=== PATIENT | male | born 1960 | race Caucasian/White ===

== ENCOUNTER 2024-03-17 01:23 | Observation (INO) | payer OTHER, SELFPAY ==
[2024-03-17] VITALS (28 sets, daily range): BP systolic 104–168; BP diastolic 58–103; PULSE 58–93; RESP 12–20; TEMP 36.1–36.6; O2SAT 94–100; BMI 29.2; BMI 29.0
--- NOTE | 2024-03-17 | EST_ITS ---
Patient Info Name: Misha Roman Age: 63 years : 1960 Gender: Male Ht: 72 in Wt: 215 lbs BSA: 2.25 m2 HR: 81 bpm BP: 123 / 88 mmHg Exam Date: 03/18/2024 10:23 AM Exam Location: Echo Lab Patient Status: Inpatient Admit Date: 03/17/2024 Staff Ordering Physician: Aneta Cantrell Attending Provider: Elizabeth Latham DO Exercise Technologist: Marisela Schmidt RDCS Exercise Physician: Bhupinder Chacon MD Exam Type: CA stress lawrence w NM Study Info A regadenoson stress test was performed. Summary 1. No abnormal ST/T wave changes diagnostic of ischemia with Lexiscan. 2. Please correlate with nuclear medicine images, reported separately. 3. Stress test supervised by and interpreted by Bhupinder Chacon MD. Protocol: Lexiscan Stress ECG Details Stage: REST Duration (min): 0 min : 52 sec HR (bpm): 85 SBP (mmHg): 123 DBP (mmHg): 88 Stage: REST Duration (min): 23 min : 49 sec HR (bpm): 83 SBP (mmHg): 123 DBP (mmHg): 88 Stage: STAGE 1 Duration (min): 1 min : 0 sec HR (bpm): 110 SBP (mmHg): 120 DBP (mmHg): 82 Stage: RECOVERY Duration (min): 1 min : 0 sec HR (bpm): 106 SBP (mmHg): 120 DBP (mmHg): 82 Stage: RECOVERY Duration (min): 2 min : 0 sec HR (bpm): 101 SBP (mmHg): 120 DBP (mmHg): 82 Stage: RECOVERY Duration (min): 3 min : 0 sec HR (bpm): 100 SBP (mmHg): 111 DBP (mmHg): 79 Stage: RECOVERY Duration (min): 3 min : 7 sec HR (bpm): 100 SBP (mmHg): 111 DBP (mmHg): 79 Rest HR: 83 bpm Peak HR: 114 bpm Rest Sys BP: 123 mmHg Peak Sys BP: 120 mmHg Max Pred HR: 157 bpm % Max Pred HR: 73 % Target HR: 133 bpm Max RPP: 13,680 bpm*mmHg Total Time: 1 min : 0 sec Rest Goldstein BP: 88 mmHg Peak Goldstein BP: 82 mmHg Total Dose: 0.4 mg Resting ECG Sinus rhythm. Stress ECG No abnormal ST/T wave changes diagnostic of ischemia with Lexiscan. Arrhythmias None. Report Signatures
--- NOTE | ~2024-03-17 | NM_ITS ---
EXAMINATION: NM lawrence stress w perfusion DATE: 03/18/2024 11:54 INDICATION: Chest pain. TECHNIQUE: Rest images were obtained following intravenous administration of 10.3 mCi Tc99m tetrofosm in (Myoview). The patient was infused intravenously with Lexiscan (regadenoson). Then, 32.4 mCi Tc99m tetrofosmin (Myoview) was administered intravenously, and supine and prone stress images were obtain ed. Data was reconstructed into short axis and horizontal and vertical long axis SPECT images. Gated SPECT images were also obtained. COMPARISON: None. FINDINGS: There is a moderate-sized, moderate severity, fixed perfusion defect involving mid anterola teral segment and mid to basal inferolateral segments of left ventricle, consistent with infarct. No reversible component to suggest ischemia. There is no segmental wall motion abnormality. Left ventr icular ejection fraction measures 56%. IMPRESSION: 1. Moderate-sized area of moderate severity infarct involving mid anterolateral segment and mid to ba alexi inferolateral segments of left ventricle. 2. Normal left ventricular ejection fraction measuring 56%. Reviewed, dictated and finalized at location A. TER SUPERVISOR IMPRESSION: 1. Moderate-sized area of moderate severity infarct involving mid anterolateral segment and mid to basal inferolateral segments of left ventricle. 2. Normal left ventricular ejection fraction measuring 56%.
--- NOTE | ~2024-03-17 | XR_ITS ---
Clinical Indication: Chest pain PA and lateral views of the chest: Comparison: None Findings: The lungs are clear, without evidence of focal consolidation or pleural effusion. Cardiome diastinal silhouette is within normal limits. Bones and soft tissues are unremarkable. Impression: Normal chest. Reviewed, dictated and finalized at location . NG TECHNICIAN Impression: Normal chest.
--- NOTE | 2024-03-17 01:25 | ECG_ITS ---
Test Date: 2024-03-17 01:43:52 Measurements Intervals [place] Rate: 75 P: 55 MS: 184 QRS: -22 QRSD: 105 T: 9 QT: 386 QTc: 433 Interpretive Statements SINUS RHYTHM BORDERLINE LEFT AXIS DEVIATION [QRS AXIS < -20] MINIMAL VOLTAGE CRITERIA FOR LVH, CONSIDER NORMAL VARIANT [MEETS CRITERIA IN ONE OF: R(aVL), S(V1), R(V5), R(V5/V6)+S(V1)] No previous ECG available for comparison Electronically Signed On 03-18-2024 17:21:21 WOOD ENGRAVER by Bhupinder Chacon M.D.
[2024-03-17] MEDS: ASPIRIN 81 MG CHEWABLE TABLET 324 MG PO (02:02)
[2024-03-17 02:03] LABS: Basophils Absolute Auto 0.1 K/mm3 (0.0-0.1); Basophils Percent Auto 0.8 % (0.2-1.2); Eosinophils Absolute Auto 0.2 K/mm3 (0-0.3); Eosinophils Percent Auto 2.3 % (0-4.4); Hematocrit 42.6 % (42.0-52.0); Hemoglobin 14.9 g/dL (14.0-18.0); Immature Granulocyte Absolute 0.02 K/mm3 (0.00-0.031); Immature Granulocyte Percent A 0.2 % (0-0.5); Lymphocytes Absolute Auto 2.57 K/mm3 (0.9-3.2); Lymphocytes Percent Auto 30.6 % (18.3-44.2); Mean Corpuscular Hemoglobin 28.6 pg (26-34); Mean Corpuscular Volume 81.8 fl (80-100); Mean Platelet Volume 10.8 fl (7.4-10.4); Monocytes Absolute Auto 0.9 K/mm3 (0.1-0.6); Monocytes Percent Auto 10.6 % (2.6-8.5); Neutrophils Absolute Auto 4.7 K/mm3 (1.3-6.7); Neutrophils Percent Auto 55.5 % (45.5-73.1); Platelet Count Result 227 k/mm3 (150-375); Red Blood Count 5.21 M/mm3 (4.6-6.20); Red Cell Distribution Width 12.3 % (11.5-14.5); White Blood Count 8.4 K/mm3 (4.5-10.0)
[2024-03-17 02:15] LABS: Alanine Aminotransferase 18 U/L (6-50); Albumin Level 3.9 g/dL (3.5-5.1); Alkaline Phosphatase 84 U/L (38-126); Anion Gap 7 mmol/L (4-12); Aspartate Amino Transferase 23 U/L (17-59); Bilirubin,Total 0.7 mg/dL (0.2-1.3); Blood Urea Nitrogen 17 mg/dL (9-20); Calcium 9.6 mg/dL (8.4-10.2); Carbon Dioxide 27 mmol/L (22-30); Chloride 102 mmol/L (98-107); Estimated CRCL calculation 87 ml/min; Estimated Glomerular Filt Rate > 60; Glucose 99 mg/dL (65-110); INR 0.9; Lipase 86 U/L (23-300); Partial Thromboplastin Time 29.5 Seconds (22.3-36.8); Potassium 3.8 mmol/L (3.4-5.0); Prothrombin Time 12.7 Seconds (11.1-14.7); Sodium 136 mmol/L (137-145)
[2024-03-17] MEDS: NITROGLYCERIN SL 0.4 MG TABLET SUBLINGUAL ×2 (02:19→05:13)
[2024-03-17 02:26] LABS: Troponin I < 0.012 ng/mL (0.000-0.034)
--- NOTE | 2024-03-17 02:43 | ED_ITS ---
HPI - General Adult General Chief complaint: Chest Pain Stated complaint: chest pain Time Seen by Provider: 03/17/24 01:51 History of Present Illness HPI narrative: The patient is 63-year-old gentleman who presents emergency department with chief complaint of chest discomfort. The patient reports that he woke up this evening was having discomfort in the left side of his chest the patient states it was a heaviness but also a sharp type pain the patient states he has had an upper respiratory infection for several weeks and had a productive cough patient states that the pain is worse with inspiration worse with cough. Patient reports that he currently does not have a primary care provider Related Data Allergies Allergy/AdvReac Type Severity Reaction Status Date / Time No Known Allergies Allergy Verified 03/17/24 01:24 Review of Systems 2 Review of Systems: A 10 system review of systems was completed on the patient and is negative except for what is stated in the HPI. Nursing and ancillary documentation was reviewed. Exam 2 Narrative: GENERAL: Well-appearing, well-nourished, and in no acute distress. HEAD: Normocephalic, atraumatic. EYES: PERRLA and EOMI. ENT: Nares clear, no rhinorrhea or epistaxis. Mucous membranes moist. NECK: Supple. CHEST: Clear to auscultation. No respiratory distress. HEART: Regular rate and rhythm. No murmur heard. Normal peripheral pulses. ABDOMEN: Soft, nontender, nondistended, normal active bowel sounds. EXTREMITIES: Normal range of motion. No edema. SKIN: Warm, dry, no rash. NEURO: No focal deficits. Alert and oriented x3. PSYCH: Normal mood and affect. Course Vital Signs Vital signs: Vital Signs Pulse Rate 82 03/17/24 01:33 Respiratory Rate 15 03/17/24 01:33 Blood Pressure 160/88 H 03/17/24 01:33 Pulse Oximetry 99 03/17/24 01:33 Oxygen Delivery Room Air 03/17/24 01:33 Temperature 36.1 C L 03/17/24 05:25 Pulse Rate 61 03/17/24 04:15 Respiratory Rate 19 03/17/24 04:15 Blood Pressure 122/78 03/17/24 04:15 Pulse Oximetry 98 03/17/24 04:15 Oxygen Delivery Room Air 03/17/24 03:00 Medical Decision Making [facility] Narrative Medical decision making narrative: Differential diagnosis includes ACS, unstable angina, stable angina, noncardiac chest pain, esophageal reflux The patient was given sublingual nitro and had resolution in his pain pain did come back and was also relieved with sublingual nitro. Vital Signs Vital Signs: Vital Signs Pulse Rate 82 03/17/24 01:33 Respiratory Rate 15 03/17/24 01:33 Blood Pressure 160/88 H 03/17/24 01:33 Pulse Oximetry 99 03/17/24 01:33 Oxygen Delivery Room Air 03/17/24 01:33 Temperature 36.1 C L 03/17/24 05:25 Pulse Rate 61 03/17/24 04:15 Respiratory Rate 19 03/17/24 04:15 Blood Pressure 122/78 03/17/24 04:15 Pulse Oximetry 98 03/17/24 04:15 Oxygen Delivery Room Air 03/17/24 03:00 Lab Data 03/17/24 01:56 03/17/24 01:56 Labs: Lab Results 03/17/24 03/17/24 03/17/24 Range/Units 01:56 02:49 04:50 WBC 8.4 (4.5-10.0) K/mm3 RBC 5.21 (4.6-6.20) M/mm3 Hgb 14.9 (14.0-18.0) g/dL Hct 42.6 (42.0-52.0) % MCV 81.8 (80-100) fl MCH 28.6 (26-34) pg MCHC 35.0 (32-36) g/dl RDW 12.3 (11.5-14.5) % Plt Count 227 (150-375) k/mm3 MPV 10.8 H (7.4-10.4) fl Immature Gran % (Auto) 0.2 (0-0.5) % Neut % (Auto) 55.5 (45.5-73.1) % Lymph % (Auto) 30.6 (18.3-44.2) % [place] % (Auto) 10.6 H (2.6-8.5) % Eos % (Auto) 2.3 (0-4.4) % Baso % (Auto) 0.8 (0.2-1.2) % Lymph # (Auto) 2.57 (0.9-3.2) K/mm3 [place] # (Auto) 0.9 H (0.1-0.6) K/mm3 Eos # (Auto) 0.2 (0-0.3) K/mm3 Baso # (Auto) 0.1 (0.0-0.1) K/mm3 Abs Immat Gran (auto) 0.02 (0.00-0.031) K/mm3 Absolute Neuts (auto) 4.7 (1.3-6.7) K/mm3 Absolute Nucleated RBC 0.000 (0.0-0.012) K/mm3 Nucleated RBC % 0.0 (0.0-0.2) % PT 12.7 (11.1-14.7) Seconds INR 0.9 APTT 29.5 (22.3-36.8) Seconds Sodium 136 L (137-145) mmol/L Potassium 3.8 (3.4-5.0) mmol/L Chloride 102 (98-107) mmol/L Carbon Dioxide 27 (22-30) mmol/L Anion Gap 7 (4-12) mmol/L BUN 17 (9-20) mg/dL Creatinine 0.83 (0.7-1.3) mg/dL Estim Creat Clear Calc 87 ml/min Estimated GFR > 60 (59 - ) Glucose 99 (65-110) mg/dL Calcium 9.6 (8.4-10.2) mg/dL Total Bilirubin 0.7 (0.2-1.3) mg/dL AST 23 (17-59) U/L ALT 18 (6-50) U/L Alkaline Phosphatase 84 (38-126) U/L Troponin I < 0.012 < 0.012 (0.000-0.034) ng/mL Total Protein 7.0 (6.3-8.2) g/dL Albumin 3.9 (3.5-5.1) g/dL Lipase 86 (23-300) U/L Influenza A (RT-PCR) Negative (Negative) Influenza B (RT-PCR) Negative (Negative) RSV (RT-PCR) Negative (Negative) SARS-CoV-2 RNA (RT-PCR) Negative (Negative) Discharge Plan Discharge Clinical Impression: Chest pain Patient Disposition: Still a Patient Condition: Stable Patient Language: Icelandic Follow-up/Referrals: PHYSICIAN,[employer] [facility] [Primary Care Provider] - Time of Disposition: 05:55
[2024-03-17 03:33] LABS: Influenza A QL RT-PCR Negative (Negative); Influenza B QL RT-PCR Negative (Negative); RSV RNA, RT-PCR Negative (Negative); SARS-CoV-2 RNA PCR Negative (Negative)
--- NOTE | 2024-03-17 04:44 | ECG_ITS ---
Test Date: 2024-03-17 04:48:22 Measurements Intervals [place] Rate: 61 P: 45 TN: 174 QRS: -12 QRSD: 91 T: 26 QT: 392 QTc: 396 Interpretive Statements SINUS RHYTHM MINIMAL VOLTAGE CRITERIA FOR LVH, CONSIDER NORMAL VARIANT NONSPECIFIC T-WAVE ABNORMALITY Compared to ECG 03/17/2024 01:43:52 NO SIGNIFICANT CHANGES Electronically Signed On 03-18-2024 17:28:40 FAMILY PROGRAM SPECIALIST by Bhupinder Chacon M.D.
[2024-03-17] MEDS: NITROGLYCERIN OINTMENT 1 INCH DOSE TRANSDERM ×3 (05:33→17:36)
[2024-03-17 05:50] LABS: Troponin I < 0.012 ng/mL (0.000-0.034)
[2024-03-17] MEDS: MORPHINE SULFATE (*CRX) 4 MG/ML INJ IV PUSH (06:31)
[2024-03-17] MEDS: ONDANSETRON INJ 4 MG/2 ML VIAL IV PUSH (06:31)
--- NOTE | 2024-03-17 07:35 | ECG_ITS ---
Test Date: 2024-03-17 07:44:54 Measurements Intervals [place] Rate: 64 P: 155 [place]: 174 QRS: -28 QRSD: 91 T: 0 QT: 382 QTc: 397 Interpretive Statements SINUS RHYTHM WITH SINUS ARRHYTHMIA BORDERLINE LEFT AXIS DEVIATION [QRS AXIS < -20] NONSPECIFIC T-WAVE ABNORMALITY Compared to ECG 03/17/2024 04:48:22 No significant changes Electronically Signed On 03-18-2024 17:30:11 TENSION MACHINE OPERATOR by Bhupinder Chacon M.D.
[2024-03-17 08:04] LABS: Troponin I < 0.012 ng/mL (0.000-0.034)
[2024-03-17] MEDS: ASPIRIN 81 MG CHEWABLE TABLET PO (08:13)
[2024-03-17 12:11] LABS: Basophils Percent Auto 0.5 % (0.2-1.2); Eosinophils Absolute Auto 0.1 K/mm3 (0-0.3); Eosinophils Percent Auto 0.8 % (0-4.4); Hematocrit 45.5 % (42.0-52.0); Hemoglobin 15.6 g/dL (14.0-18.0); Immature Granulocyte Absolute 0.03 K/mm3 (0.00-0.031); Immature Granulocyte Percent A 0.3 % (0-0.5); Lymphocytes Absolute Auto 2.16 K/mm3 (0.9-3.2); Lymphocytes Percent Auto 25.1 % (18.3-44.2); Mean Corpuscular HGB Conc 34.3 g/dl (32-36); Mean Corpuscular Hemoglobin 28.6 pg (26-34); Mean Corpuscular Volume 83.5 fl (80-100); Mean Platelet Volume 10.5 fl (7.4-10.4); Monocytes Absolute Auto 0.9 K/mm3 (0.1-0.6); Neutrophils Absolute Auto 5.5 K/mm3 (1.3-6.7); Neutrophils Percent Auto 63.3 % (45.5-73.1); Platelet Count Result 243 k/mm3 (150-375); Red Blood Count 5.45 M/mm3 (4.6-6.20); Red Cell Distribution Width 12.7 % (11.5-14.5); White Blood Count 8.6 K/mm3 (4.5-10.0)
[2024-03-17 12:27] LABS: Prothrombin Time 13.5 Seconds (11.1-14.7)
[2024-03-17 12:29] LABS: Partial Thromboplastin Time 28.9 Seconds (22.3-36.8)
--- NOTE | 2024-03-17 12:58 | PM.IMHP ---
H&P: HPI History of Present Illness Date/Time: 03/17/24 12:58 Chief Complaint: Chest pain Narrative: 63 years old gentleman without significant past medical history present ED with a chief complaint of chest pain. Patient started have chest pain yesterday evening, locating left chest, pressure-like and sharp pain without radiation. Patient denies cough, shortness breath, nausea vomiting diarrhea acid reflux Patient has upper respiratory infection in past weeks Upon arrival in ED, patient has uncontrolled blood pressure 160/88, pulse ox 99 on room air, afebrile, CBC and chemistry unremarkable, influenza and COVID negative, troponin negative x2, less than 0.012 EKG shows sinus rhythm, no specific ST or T-wave changes. Chest x-ray shows no acute cardiopulmonary issues In the ED, patient received aspirin, nitro paste now patient has no chest pain PMFSH Social History Social History Smoking status: Never smoker Meds Home Medications and Allergies Home Medications ?Medication ?Instructions ?Recorded ?Confirmed ?Type No Home Medications 03/17/24 03/17/24 History Allergies Allergy/AdvReac Type Severity Reaction Status Date / Time No Known Allergies Allergy Verified 03/17/24 08:22 Vital Signs Vital Signs - 24 hr 03/17/24 01:33 03/17/24 01:45 03/17/24 02:00 Temperature Pulse Rate 82 80 76 Respiratory Rate 15 12 16 Blood Pressure 160/88 H 168/103 H 156/90 H Pulse Oximetry 99 98 100 Oxygen Delivery Room Air 03/17/24 02:17 03/17/24 02:23 03/17/24 02:30 Temperature Pulse Rate 72 84 86 Respiratory Rate 13 16 13 Blood Pressure 148/80 H 116/78 136/85 Pulse Oximetry 96 96 94 Oxygen Delivery 03/17/24 02:41 03/17/24 02:45 03/17/24 03:00 Temperature Pulse Rate 84 71 Respiratory Rate 13 12 Blood Pressure 123/78 123/74 Pulse Oximetry 94 97 Oxygen Delivery Room Air 03/17/24 03:00 03/17/24 03:15 03/17/24 03:30 Temperature Pulse Rate 70 62 63 Respiratory Rate 16 12 18 Blood Pressure 127/73 120/81 130/81 Pulse Oximetry 97 99 96 Oxygen Delivery 03/17/24 03:45 03/17/24 04:00 03/17/24 04:15 Temperature Pulse Rate 60 61 61 Respiratory Rate 12 18 19 Blood Pressure 112/64 104/63 122/78 Pulse Oximetry 99 97 98 Oxygen Delivery 03/17/24 05:25 03/17/24 07:35 03/17/24 08:01 Temperature 97.0 F L Pulse Rate 60 77 Respiratory Rate 18 13 Blood Pressure 113/64 109/66 Pulse Oximetry 96 98 Oxygen Delivery 03/17/24 10:00 03/17/24 10:46 Temperature Pulse Rate 58 L 73 Respiratory Rate 18 19 Blood Pressure 105/67 Pulse Oximetry 97 100 Oxygen Delivery H&P: Results Labs Labs: Short CBC 03/17/24 03/17/24 Range/Units 01:56 12:06 WBC 8.4 8.6 (4.5-10.0) K/mm3 Hgb 14.9 15.6 (14.0-18.0) g/dL Hct 42.6 45.5 (42.0-52.0) % Plt Count 227 243 (150-375) k/mm3 BMP 03/17/24 01:56 Sodium 136 L Potassium 3.8 Chloride 102 Carbon Dioxide 27 BUN 17 Creatinine 0.83 Glucose 99 Calcium 9.6 Cardiac Enzymes 03/17/24 03/17/24 03/17/24 Range/Units 01:56 04:50 07:24 Troponin I < 0.012 < 0.012 < 0.012 (0.000-0.034) ng/mL Liver Function 03/17/24 Range/Units 01:56 Total Bilirubin 0.7 (0.2-1.3) mg/dL AST 23 (17-59) U/L ALT 18 (6-50) U/L Alkaline Phosphatase 84 (38-126) U/L Albumin 3.9 (3.5-5.1) g/dL Assessment and Plan Assessment and plan (1) Chest pain: Code(s): R07.9 - Chest pain, unspecified Status: Acute (2) Uncontrolled hypertension: Code(s): I10 - Essential (primary) hypertension Status: Acute Plan Chest pain Patient has a precordial chest pain started yesterday no history of CAD. Cardiac stress test 8 years ago was unremarkable Troponin negative EKG shows sinus rhythm no specific ST or T-wave changes Heparin is started Will hold heparin drip now, Follow-up serial troponin EKG p.r.n. new order echocardiogram Start aspirin 325 mg once and 81 mg daily p.o. nitroglycerin sublingual p.r.n. Follow-up lipid panel Telemetry monitoring Order D-dimer stat if positive will consider CTA of the chest UNCONTROLLED HYPERTENSION Elevated blood pressure, patient is not consistent with medication Blood pressure 160 over 88 Patient received nitropaste 1 in q.6 hours Start losartan 50 mg daily p.o. Monitor blood pressure Q 8 hour Hospitalist MIPS Advance Care Plan I have confirmed that the patient's Advanced Care Plan is present, code status is documented, or surrogate decision maker is listed in patient medical record.: Yes Medication Reconciliation I have utilized all available resources to obtain, update and review the patients current medications (includes all prescriptions, OTC, herbals, cannabis, and nutritional supplements).: Yes
--- NOTE | 2024-03-17 13:15 | PC.NURSE ---
Pt upset that he hasn't spoke with a DrSunil since last night. This RN has attempted to reach hospitalist a few times to come and speak with pt. Pt wanting to leave AMA
[2024-03-17 13:28] LABS: D Dimer 0.33 ug/mL (<0.48)
[2024-03-17 13:30] LABS: Cholesterol 221 mg/dL (0-200); HDL Direct 60 mg/dL; Triglycerides 109 mg/dL (<150)
--- NOTE | 2024-03-17 13:36 | PC.NURSE ---
Dr. Collins in speaking with pt at this time
--- NOTE | 2024-03-17 13:39 | ADMGEN ---
This patient, Misha Roman, was admitted to [facility] IMU in ER-6. Patient/family oriented to hospital policies and general routines including ID bracelet, bed and alarms, visiting hours, pain management, procedures, bathroom and other care routines, personal items, smoking policy, room service/diet, and visiting hours. Information on how to activate the Rapid Response Team has been discussed. Patient/Family are encouraged to report perceived risks to care and to ask questions if they do not understand what they are told or what they should do.
[2024-03-17 13:41] LABS: LDL Cholesterol Direct 122 mg/dL
--- NOTE | 2024-03-17 16:02 | P.CONCA_ITS ---
Assessment and Plan Assessment and plan (1) Chest pain: Code(s): R07.9 - Chest pain, unspecified Status: Acute Assessment and Plan: Presents with new onset of central, pressure-like chest pain. Serial troponin levels have been negative and EKG shows normal sinus rhythm, no ST or T-wave abnormalities. Chest pain has been responsive to nitroglycerin. He was ruled out for acute coronary syndrome. However, his history of exertional angina is concerning for myocardial ischemia. Therefore, will order a nuclear stress test to take place tomorrow to rule out underlying coronary artery disease. (2) Uncontrolled hypertension: Code(s): I10 - Essential (primary) hypertension Status: Acute Assessment and Plan: Patient states he was told about 8 years ago he has high blood pressure but declined to take any antihypertensives. His blood pressure has been intermittently elevated while in the emergency department but often at goal. Will hold off on any antihypertensives for now and continue to observe his blood pressure overnight. History of Present Illness History of Present Illness Consult date/time: 03/17/24 16:02 Requesting physician: Hamilton Thomson MD Consult reason: chest pain Reason For Visit: Chest Pain Narrative: Misha Roman is a 63-year-old male with no past medical history. He states that he does not see a doctor. This is a patient who comes to the hospital with a chief complaint of chest pain. Patient developed chest pain the workup from a sleep last night. He describes the pain as a central, pressure-like sensation and feels as if someone is sitting on his chest. Pain has been consistent since onset and increases and decreases in severity. The pain does not radiate to any other areas of the body. He denies any shortness of breath, palpitations, swelling, syncope, presyncope. He does endorse a history of exertional angina. He states an example of shoveling the snow yesterday and having some mild chest discomfort. At the time of my evaluation, he is comfortable and rates his chest discomfort at a 2/10. Of note, his serial troponin levels have been negative and EKG does not have any acute ischemic changes. Review of Systems 2 Review of Systems: All systems reviewed & are unremarkable except as noted in HPI and below PMFSH Social History Social History Smoking status: Never smoker Alcohol intake: current Drinks per week: 10 Substance use: never Substance use type: does not use Do You Feel Safe in your Home?: Yes Lack of Transportation: No Lack of Food: Never True Current Housing: I Have Housing Concerned About Future Housing: No Difficulty Paying Gas/Electric Bills: No Difficulty Paying for Meds: No Currently Unemployed: No Education: High School Diploma/GED Difficulty w/ Childcare or Family Care: No Spiritual care concerns: No Meds Home Medications and Allergies Home Medications ?Medication ?Instructions ?Recorded ?Confirmed ?Type No Home Medications 03/17/24 03/17/24 History Allergies Allergy/AdvReac Type Severity Reaction Status Date / Time No Known Allergies Allergy Verified 03/17/24 08:22 Vital Signs Vital Signs - 24 hr 03/17/24 01:33 03/17/24 01:45 03/17/24 02:00 Temperature Pulse Rate 82 80 76 Respiratory Rate 15 12 16 Blood Pressure 160/88 H 168/103 H 156/90 H Pulse Oximetry 99 98 100 Oxygen Delivery Room Air 03/17/24 02:17 03/17/24 02:23 03/17/24 02:30 Temperature Pulse Rate 72 84 86 Respiratory Rate 13 16 13 Blood Pressure 148/80 H 116/78 136/85 Pulse Oximetry 96 96 94 Oxygen Delivery 03/17/24 02:41 03/17/24 02:45 03/17/24 03:00 Temperature Pulse Rate 84 71 Respiratory Rate 13 12 Blood Pressure 123/78 123/74 Pulse Oximetry 94 97 Oxygen Delivery Room Air 03/17/24 03:00 03/17/24 03:15 03/17/24 03:30 Temperature Pulse Rate 70 62 63 Respiratory Rate 16 12 18 Blood Pressure 127/73 120/81 130/81 Pulse Oximetry 97 99 96 Oxygen Delivery 03/17/24 03:45 03/17/24 04:00 03/17/24 04:15 Temperature Pulse Rate 60 61 61 Respiratory Rate 12 18 19 Blood Pressure 112/64 104/63 122/78 Pulse Oximetry 99 97 98 Oxygen Delivery 03/17/24 05:25 03/17/24 07:35 03/17/24 08:01 Temperature 36.1 C L Pulse Rate 60 77 Respiratory Rate 18 13 Blood Pressure 113/64 109/66 Pulse Oximetry 96 98 Oxygen Delivery 03/17/24 10:00 03/17/24 10:46 03/17/24 12:01 Temperature Pulse Rate 58 L 73 79 Respiratory Rate 18 19 20 Blood Pressure 105/67 128/82 Pulse Oximetry 97 100 100 Oxygen Delivery 03/17/24 13:56 Temperature Pulse Rate 78 Respiratory Rate 15 Blood Pressure 146/92 H Pulse Oximetry 100 Oxygen Delivery Exam 2 Const: General: comfortable, no acute distress, alert and awake O rientation/consciousness: patient oriented x3 HENMT: Head: normal to inspection Eyes: General: appearance normal, both eyes and all related structures P upils: Equal, round and reactive pupils present Neck: Neck: normal visual inspection, supple and no JVD Carotids: normal carotid upstroke Resp: Effort & Inspection: normal respiratory effort Auscultation: clear to auscultation bilaterally Cardio: Rate: regular rate Rhythm: regular rhythm Heart sounds: S1 normal heart sound present, S2 normal heart sound present and no murmurs GI: Auscultation: normal bowel sounds Skin: General skin exam: normal color Neuro: General: patient oriented x3 Cranial nerves: Yes Equal, round and reactive pupils present Extrem: General: normal to inspection Psych: Appearance: grossly normal Mental Status: mental status grossly normal Results Labs and Meds 03/17/24 12:06 03/17/24 01:56 Lab results: Cardiac Enzymes 03/17/24 03/17/24 03/17/24 Range/Units 01:56 04:50 07:24 AST 23 (17-59) U/L Troponin I < 0.012 < 0.012 < 0.012 (0.000-0.034) ng/mL Coagulation 03/17/24 03/17/24 Range/Units 01:56 12:06 PT 12.7 13.5 (11.1-14.7) Seconds APTT 29.5 28.9 (22.3-36.8) Seconds Lipids 03/17/24 Range/Units 12:06 Triglycerides 109 (<150) mg/dL Cholesterol 221 H (0-200) mg/dL CBC 03/17/24 03/17/24 Range/Units 01:56 12:06 WBC 8.4 8.6 (4.5-10.0) K/mm3 RBC 5.21 5.45 (4.6-6.20) M/mm3 Hgb 14.9 15.6 (14.0-18.0) g/dL Hct 42.6 45.5 (42.0-52.0) % Plt Count 227 243 (150-375) k/mm3 Lymph # (Auto) 2.57 2.16 (0.9-3.2) K/mm3 [place] # (Auto) 0.9 H 0.9 H (0.1-0.6) K/mm3 Eos # (Auto) 0.2 0.1 (0-0.3) K/mm3 Baso # (Auto) 0.1 0.0 (0.0-0.1) K/mm3 Comprehensive Metabolic Panel 03/17/24 Range/Units 01:56 Sodium 136 L (137-145) mmol/L Potassium 3.8 (3.4-5.0) mmol/L Chloride 102 (98-107) mmol/L Carbon Dioxide 27 (22-30) mmol/L BUN 17 (9-20) mg/dL Creatinine 0.83 (0.7-1.3) mg/dL Glucose 99 (65-110) mg/dL Calcium 9.6 (8.4-10.2) mg/dL AST 23 (17-59) U/L ALT 18 (6-50) U/L Alkaline Phosphatase 84 (38-126) U/L Total Protein 7.0 (6.3-8.2) g/dL Albumin 3.9 (3.5-5.1) g/dL Patient Weight 03/17/24 23:59 Weight 97.7 kg
--- NOTE | 2024-03-17 17:25 | ADMGEN ---
This patient, Misha Roman, was admitted to IMU Room 214-01. Patient/family oriented to hospital policies and general routines including ID bracelet, bed and alarms, visiting hours, pain management, procedures, bathroom and other care routines, personal items, smoking policy, room service/diet, and visiting hours. Information on how to activate the Rapid Response Team has been discussed. Patient/Family are encouraged to report perceived risks to care and to ask questions if they do not understand what they are told or what they should do.
[2024-03-18] VITALS (15 sets, daily range): BP systolic 119–144; BP diastolic 67–80; PULSE 68–94; RESP 14–16; TEMP 36.5–36.7; O2SAT 93–99
[2024-03-18] MEDS: NITROGLYCERIN OINTMENT 1 INCH DOSE TRANSDERM ×2 (00:06→06:14)
[2024-03-18 04:49] LABS: Basophils Percent Auto 0.3 % (0.2-1.2); Eosinophils Absolute Auto 0.1 K/mm3 (0-0.3); Eosinophils Percent Auto 1.3 % (0-4.4); Hematocrit 39.9 % (42.0-52.0); Hemoglobin 13.8 g/dL (14.0-18.0); Immature Granulocyte Absolute 0.03 K/mm3 (0.00-0.031); Immature Granulocyte Percent A 0.4 % (0-0.5); Lymphocytes Absolute Auto 1.43 K/mm3 (0.9-3.2); Mean Corpuscular HGB Conc 34.6 g/dl (32-36); Mean Corpuscular Hemoglobin 28.9 pg (26-34); Mean Corpuscular Volume 83.5 fl (80-100); Mean Platelet Volume 10.6 fl (7.4-10.4); Monocytes Absolute Auto 0.8 K/mm3 (0.1-0.6); Monocytes Percent Auto 10.8 % (2.6-8.5); Neutrophils Absolute Auto 5.1 K/mm3 (1.3-6.7); Neutrophils Percent Auto 68.2 % (45.5-73.1); Platelet Count Result 208 k/mm3 (150-375); Red Blood Count 4.78 M/mm3 (4.6-6.20); Red Cell Distribution Width 12.4 % (11.5-14.5); White Blood Count 7.5 K/mm3 (4.5-10.0)
[2024-03-18] MEDS: ASPIRIN 81 MG CHEWABLE TABLET PO (08:13)
[2024-03-18] MEDS: ACETAMINOPHEN 325 MG TABLET 650 MG PO (08:13)
--- NOTE | 2024-03-18 10:16 | P.PNIM_ITS ---
Progress Note: A&P Assessment and Plan (1) Chest pain: Code(s): R07.9 - Chest pain, unspecified Status: Acute (2) Uncontrolled hypertension: Code(s): I10 - Essential (primary) hypertension Status: Acute Plan Chest pain Patient has a precordial chest pain started yesterday no history of CAD. Cardiac stress test 8 years ago was unremarkable Troponin negative EKG shows sinus rhythm no specific ST or T-wave changes Heparin is started Will hold heparin drip now, Follow-up serial troponin : negative EKG p.r.n. echocardiogram Start aspirin 325 mg once and 81 mg daily p.o. nitroglycerin sublingual p.r.n. Follow-up lipid panel Telemetry monitoring Order D-dimer -ve 0.33 penidng stress stest UNCONTROLLED HYPERTENSION Elevated blood pressure, patient is not consistent with medication Blood pressure 160 over 88 Patient received nitropaste 1 in q.6 hours Start losartan 50 mg daily p.o. Monitor blood pressure Q 8 hour Subjective Date/time seen: 03/18/24 10:16 Interval history: Saw exam patient, patient feels control, denies chest pain. Patient underwent cardiac stress test today. Patient is afebrile, blood pressure stable, labs reviewed Exam Narrative: GENERAL: Pleasant, in no acute distress. Well-nourished. - EYES: EOMI. Anicteric. - HENT: Moist mucous membranes. - LUNGS: Clear to auscultation bilateral ly, no wheezing, rhonchi, or rales. - CARDIOVASCULAR: Regular rate and rhyth m. No murmur. No JVD. - ABDOMEN: Soft, non-tender and non-dist ended. No palpable masses. - EXTREMITIES: No edema. Peripheral puls es 2+. Non-tender. - NEUROLOGIC: No focal neurological defi cits. CN II-XII grossly intact. - PSYCHIATRIC: Awake, Alert and oriented x 3. Appropriate mood and affect. - SKIN: No rashes or lesions. Warm. - LYMPH: No cervical lymphadenopathy. Objective Data Vital Signs Vital Signs: Vital Signs - 24 hr 03/17/24 10:46 03/17/24 12:01 03/17/24 13:56 Temperature Pulse Rate 73 79 78 Respiratory Rate 19 20 15 Blood Pressure 128/82 146/92 H Pulse Oximetry 100 100 100 03/17/24 13:56 03/17/24 16:50 03/17/24 17:31 Temperature 97.7 F Pulse Rate 78 73 79 Respiratory Rate 14 18 20 Blood Pressure 146/92 H 124/74 122/69 Pulse Oximetry 100 98 100 03/17/24 18:00 03/17/24 19:51 03/17/24 20:00 Temperature 97.5 F L Pulse Rate 93 63 70 Respiratory Rate 18 Blood Pressure 130/75 Pulse Oximetry 100 03/17/24 22:00 03/17/24 23:46 03/18/24 00:00 Temperature 97.8 F Pulse Rate 82 92 79 Respiratory Rate 16 Blood Pressure 122/58 L Pulse Oximetry 98 03/18/24 02:00 03/18/24 04:00 03/18/24 04:00 Temperature 97.7 F Pulse Rate 77 68 84 Respiratory Rate 16 Blood Pressure 119/67 Pulse Oximetry 96 03/18/24 06:00 03/18/24 07:29 Temperature 98.1 F Pulse Rate 77 82 Respiratory Rate 14 Blood Pressure 120/76 Pulse Oximetry 99 Intake/Output Intake/Output: Intake & Output 03/15/24 03/16/24 03/17/24 03/18/24 23:59 23:59 23:59 23:59 Intake Total 700 Output Total 800 Balance -100 Meds/Results Medications: Active Medications Generic Name Dose Route Start Last Admin Trade Name Kjq PRN Reason Stop Dose Admin Acetaminophen 650 mg 03/17/24 05:53 03/18/24 08:13 Acetaminophen 325 Mg Tablet PO 650 mg Q4H PRN Administration Mild Pain (1-3) or Fever Aspirin 81 mg 03/17/24 08:00 03/18/24 08:13 Aspirin 81 Mg Chewable Tablet PO 81 mg DAILY@0800 [facility] Administration Heparin Sodium (Porcine) 4,000 units 03/17/24 11:36 Heparin Sodium 5,000 Units/Ml Vial IV PUSH PRN PRN aPTT less than 55 seconds Heparin Sodium (Porcine) 3,500 units 03/17/24 11:36 Heparin Sodium 5,000 Units/Ml Vial IV PUSH PRN PRN aPTT 55 - 70 seconds Heparin Sodium/Dextrose 25,000 units in 250 mls @ 10 mls/hr 03/17/24 11:40 03/17/24 13:45 Heparin Sodium/D5w 100 Units/Ml IV CONT Not Given .Q24H [facility] Protocol 1,000 UNITS/HR Morphine Sulfate 4 mg 03/17/24 05:53 Morphine Sulfate (*Crx) 4 Mg/Ml Inj IV PUSH Q2H PRN Pain Rated 7-10 Nitroglycerin 1 inch 03/17/24 06:00 03/18/24 06:14 Nitroglycerin Ointment 1 Inch Dose TRANSDERM 1 inch Q6HR [facility] Administration Ondansetron HCl 4 mg 03/17/24 05:53 03/17/24 06:31 Ondansetron Inj 4 Mg/2 Ml Vial IV PUSH 4 mg Q4H PRN Administration Nausea Radiology Results: ITS Impressions Chest X-Ray 03/17/24 05:19 Impression: Normal chest. Labs Labs: Laboratory Results - last 24 hr 03/17/24 03/17/24 03/18/24 12:02 12:06 04:28 WBC 8.6 7.5 RBC 5.45 4.78 Hgb 15.6 13.8 L Hct 45.5 39.9 L MCV 83.5 83.5 MCH 28.6 28.9 MCHC 34.3 34.6 RDW 12.7 12.4 Plt Count 243 208 MPV 10.5 H 10.6 H Immature Gran % (Auto) 0.3 0.4 Neut % (Auto) 63.3 68.2 Lymph % (Auto) 25.1 19.0 [place] % (Auto) 10.0 H 10.8 H Eos % (Auto) 0.8 1.3 Baso % (Auto) 0.5 0.3 Lymph # (Auto) 2.16 1.43 [place] # (Auto) 0.9 H 0.8 H Eos # (Auto) 0.1 0.1 Baso # (Auto) 0.0 0.0 Abs Immat Gran (auto) 0.03 0.03 Absolute Neuts (auto) 5.5 5.1 Absolute Nucleated RBC 0.000 0.000 Nucleated RBC % 0.0 0.0 PT 13.5 INR 1.0 APTT 28.9 D-Dimer 0.33 Triglycerides 109 Cholesterol 221 H LDL Cholesterol Direct 122 HDL Direct 60
--- NOTE | 2024-03-18 14:13 | PM.PNCARD ---
Progress Note: A&P Assessment and Plan (1) Chest pain: Code(s): R07.9 - Chest pain, unspecified Status: Acute Assessment and Plan: Presented with new onset of central, pressure-like chest pain. Serial troponin levels have been negative and EKG shows normal sinus rhythm, no ST or T-wave abnormalities. Chest pain has been responsive to nitroglycerin. He was ruled out for acute coronary syndrome. However, his history of exertional angina is concerning for myocardial ischemia. Therefore, will ordered nuclear stress test. Nuclear stress test shows: 1. Moderate-sized area of moderate severity infarct involving mid anterolateral segment and mid to basal inferolateral segments of left ventricle. 2. Normal left ventricular ejection fraction measuring 56%. Given abnormal stress test, recommended cardiac catheterization. Discussed indication for LHC, procedure details, risks vs benefits, alternative management options. Patient wants to think about whether he wants to pursue this as an inpatient or an outpatient. Since patient no longer having any chest pain or other symptoms, okay from my standpoint to pursue outpatient. He will discuss it with his and let us know of his decision. (2) Uncontrolled hypertension: Code(s): I10 - Essential (primary) hypertension Status: Acute Assessment and Plan: Patient states he was told about 8 years ago he has high blood pressure but declined to take any antihypertensives. His blood pressure has been intermittently elevated while in the emergency department but often at goal. Will hold off on any antihypertensives for now and continue to observe his blood pressure. Subjective Date/time seen: 03/18/24 14:13 Interval history: Reason for visit: Chest pain HPI: Misha Roman is a 63-year-old male with no past medical history. He states that he does not see a doctor. This is a patient who comes to the hospital with a chief complaint of chest pain. Patient developed chest pain the workup from a sleep last night. He describes the pain as a central, pressure-like sensation and feels as if someone is sitting on his chest. Pain has been consistent since onset and increases and decreases in severity. The pain does not radiate to any other areas of the body. He denies any shortness of breath, palpitations, swelling, syncope, presyncope. He does endorse a history of exertional angina. He states an example of shoveling the snow yesterday and having some mild chest discomfort. At the time of my evaluation, he is comfortable and rates his chest discomfort at a 2/10. Of note, his serial troponin levels have been negative and EKG does not have any acute ischemic changes. Date of service 03/18: No longer having any chest pain. Feeling well. Review of Systems Review of Systems: All systems reviewed & are unremarkable except as noted in HPI and below (HPI) Exam Const: General: comfortable and no acute distress HENMT: Mouth: Yes moist mucous membranes Eyes: General: appearance normal, both eyes and all related structures Sclera: sclerae normal Resp: Effort & Inspection: normal respiratory effort Cardio: Rate: regular rate Rhythm: regular rhythm Skin: General skin exam: normal color Neuro: Speech: normal speech Psych: Mental Status: mental status grossly normal Affect: normal affect Objective Data Vital Signs Vital Signs: Vital Signs - 24 hr 03/17/24 16:50 03/17/24 17:31 03/17/24 18:00 Temperature 36.5 C Pulse Rate 73 79 93 Respiratory Rate 18 20 Blood Pressure 124/74 122/69 Pulse Oximetry 98 100 03/17/24 19:51 03/17/24 20:00 03/17/24 22:00 Temperature 36.4 C L Pulse Rate 63 70 82 Respiratory Rate 18 Blood Pressure 130/75 Pulse Oximetry 100 03/17/24 23:46 03/18/24 00:00 03/18/24 02:00 Temperature 36.6 C Pulse Rate 92 79 77 Respiratory Rate 16 Blood Pressure 122/58 L Pulse Oximetry 98 03/18/24 04:00 03/18/24 04:00 03/18/24 06:00 Temperature 36.5 C Pulse Rate 68 84 77 Respiratory Rate 16 Blood Pressure 119/67 Pulse Oximetry 96 03/18/24 07:29 03/18/24 08:00 03/18/24 08:00 Temperature 36.7 C Pulse Rate 82 93 82 Respiratory Rate 14 14 Blood Pressure 120/76 Pulse Oximetry 99 99 03/18/24 11:39 Temperature 36.6 C Pulse Rate 83 Respiratory Rate 16 Blood Pressure 135/71 Pulse Oximetry 98 Intake/Output Intake/Output: Intake & Output 03/15/24 03/16/24 03/17/24 03/18/24 23:59 23:59 23:59 23:59 Intake Total 700 Output Total 800 Balance -100 Meds/Results Medications: Active Medications Generic Name Dose Route Start Last Admin Trade Name Kjq PRN Reason Stop Dose Admin Acetaminophen 650 mg 03/17/24 05:53 03/18/24 08:13 Acetaminophen 325 Mg Tablet PO 650 mg Q4H PRN Administration Mild Pain (1-3) or Fever Aspirin 81 mg 03/17/24 08:00 03/18/24 08:13 Aspirin 81 Mg Chewable Tablet PO 81 mg DAILY@0800 [facility] Administration Heparin Sodium (Porcine) 4,000 units 03/17/24 11:36 Heparin Sodium 5,000 Units/Ml Vial IV PUSH PRN PRN aPTT less than 55 seconds Heparin Sodium (Porcine) 3,500 units 03/17/24 11:36 Heparin Sodium 5,000 Units/Ml Vial IV PUSH PRN PRN aPTT 55 - 70 seconds Heparin Sodium/Dextrose 25,000 units in 250 mls @ 10 mls/hr 03/17/24 11:40 03/17/24 13:45 Heparin Sodium/D5w 100 Units/Ml IV CONT Not Given .Q24H [facility] Protocol 1,000 UNITS/HR Morphine Sulfate 4 mg 03/17/24 05:53 Morphine Sulfate (*Crx) 4 Mg/Ml Inj IV PUSH Q2H PRN Pain Rated 7-10 Nitroglycerin 1 inch 03/17/24 06:00 03/18/24 14:13 Nitroglycerin Ointment 1 Inch Dose TRANSDERM Not Given Q6HR [facility] Ondansetron HCl 4 mg 03/17/24 05:53 03/17/24 06:31 Ondansetron Inj 4 Mg/2 Ml Vial IV PUSH 4 mg Q4H PRN Administration Nausea Radiology Results: ITS Impressions Chest X-Ray 03/17/24 05:19 Impression: Normal chest. Lexiscan Stress Test 03/18/24 12:30 IMPRESSION: 1. Moderate-sized area of moderate severity infarct involving mid anterolateral segment and mid to basal inferolateral segments of left ventricle. 2. Normal left ventricular ejection fraction measuring 56%. Labs Labs: Laboratory Results - last 24 hr 03/18/24 04:28 WBC 7.5 RBC 4.78 Hgb 13.8 L Hct 39.9 L MCV 83.5 MCH 28.9 MCHC 34.6 RDW 12.4 Plt Count 208 MPV 10.6 H Immature Gran % (Auto) 0.4 Neut % (Auto) 68.2 Lymph % (Auto) 19.0 [place] % (Auto) 10.8 H Eos % (Auto) 1.3 Baso % (Auto) 0.3 Lymph # (Auto) 1.43 [place] # (Auto) 0.8 H Eos # (Auto) 0.1 Baso # (Auto) 0.0 Abs Immat Gran (auto) 0.03 Absolute Neuts (auto) 5.1 Absolute Nucleated RBC 0.000 Nucleated RBC % 0.0
--- NOTE | 2024-03-18 15:13 | P.DS_ITS ---
DS: Summary Time Spent with Patient Time attestation: Total time spent providing and/or coordinating discharge services: DS: Data Data Completed and Pending Labs on day of discharge: Labs from last 24 hours 03/18/24 04:28 WBC 7.5 RBC 4.78 Hgb 13.8 L Hct 39.9 L MCV 83.5 MCH 28.9 MCHC 34.6 RDW 12.4 Plt Count 208 MPV 10.6 H Immature Gran % (Auto) 0.4 Neut % (Auto) 68.2 Lymph % (Auto) 19.0 [place] % (Auto) 10.8 H Eos % (Auto) 1.3 Baso % (Auto) 0.3 Lymph # (Auto) 1.43 [place] # (Auto) 0.8 H Eos # (Auto) 0.1 Baso # (Auto) 0.0 Abs Immat Gran (auto) 0.03 Absolute Neuts (auto) 5.1 Absolute Nucleated RBC 0.000 Nucleated RBC % 0.0 Discharge Plan Discharge Attending physician on discharge: Tierra Collins Consulting providers: Bhupinder Chacon Discharging Clinician: Tierra Collins Patient Disposition: Home, Self-Care Activity: as tolerated Diet: heart healthy Patient Instructions: Antibiotic Form Patient Language: [place] Stand Alone Forms: General Discharge Information Follow-up/Referrals: PHYSICIAN,SHIP UNLOADER [Primary Care Provider] - (See primary care doctor in 1 week) Bhupinder Chacon MD [Physician] - (See dental assistant at scheduled appointment) Discharge Medications: New aspirin [Children's Aspirin] 81 mg Tablet,Chewable 81 mg PO DAILY@0800 Qty: 30 0RF No Action No Home Medications Date of admission: 03/17/24 05:53 Primary Care Provider: PHYSICIAN,SHIP UNLOADER Admitting Provider: Elizabeth Latham Attending physician on admission: Elizabeth Latham Condition: Stable
[2024-03-19] VITALS (33 sets, daily range): BP systolic 101–165; BP diastolic 5–104; PULSE 58–97; RESP 13–22; TEMP 36.3–36.9; O2SAT 95–100
[2024-03-19] MEDS: ASPIRIN 81 MG CHEWABLE TABLET PO (09:06)
[2024-03-19] MEDS: ATORVASTATIN 40 MG TABLET 80 MG PO (09:06)
--- NOTE | 2024-03-19 10:04 | P.PNIM_ITS ---
Progress Note: A&P Assessment and Plan (1) Chest pain: Code(s): R07.9 - Chest pain, unspecified Status: Acute (2) Uncontrolled hypertension: Code(s): I10 - Essential (primary) hypertension Status: Acute Plan Chest pain Patient has a precordial chest pain started yesterday no history of CAD. Cardiac stress test 8 years ago was unremarkable Troponin negative EKG shows sinus rhythm no specific ST or T-wave changes Heparin is started hold heparin drip now, Follow-up serial troponin : negative EKG p.r.n. echocardiogram Start aspirin 325 mg once and 81 mg daily p.o. nitroglycerin sublingual p.r.n. Follow-up lipid panel Telemetry monitoring Order D-dimer -ve 0.33 Positive stress tests of ischemia, Chance cardiac catheterization today UNCONTROLLED HYPERTENSION Elevated blood pressure, patient is not consistent with medication Blood pressure 160 over 88 Patient received nitropaste 1 in q.6 hours Start losartan 50 mg daily p.o. Monitor blood pressure Q 8 hour Subjective Date/time seen: 03/19/24 10:04 Interval history: Saw exam patient, patient feels control, denies chest pain. Patient is afebrile, blood pressure stable, labs reviewed Exam Narrative: GENERAL: Pleasant, in no acute distress. Well-nourished. - EYES: EOMI. Anicteric. - HENT: Moist mucous membranes. - LUNGS: Clear to auscultation bilateral ly, no wheezing, rhonchi, or rales. - CARDIOVASCULAR: Regular rate and rhyth m. No murmur. No JVD. - ABDOMEN: Soft, non-tender and non-dist ended. No palpable masses. - EXTREMITIES: No edema. Peripheral puls es 2+. Non-tender. - NEUROLOGIC: No focal neurological defi cits. CN II-XII grossly intact. - PSYCHIATRIC: Awake, Alert and oriented x 3. Appropriate mood and affect. - SKIN: No rashes or lesions. Warm. - LYMPH: No cervical lymphadenopathy. Objective Data Vital Signs Vital Signs: Vital Signs - 24 hr 03/18/24 11:39 03/18/24 12:20 03/18/24 14:00 Temperature 97.8 F Pulse Rate 83 93 94 Respiratory Rate 16 Blood Pressure 135/71 Pulse Oximetry 98 Oxygen Delivery 03/18/24 15:19 03/18/24 16:00 03/18/24 16:00 Temperature Pulse Rate 82 94 Respiratory Rate 14 Blood Pressure 135/79 Pulse Oximetry 93 97 Oxygen Delivery Room Air 03/18/24 16:00 03/18/24 18:00 03/18/24 19:58 Temperature 98 F Pulse Rate 94 83 79 Respiratory Rate 16 Blood Pressure 144/80 H Pulse Oximetry 97 Oxygen Delivery 03/18/24 20:00 03/18/24 22:00 03/19/24 00:00 Temperature 97.8 F Pulse Rate 79 82 66 Respiratory Rate 15 Blood Pressure 133/81 Pulse Oximetry 99 Oxygen Delivery 03/19/24 00:00 03/19/24 02:00 03/19/24 04:00 Temperature 97.7 F Pulse Rate 69 65 74 Respiratory Rate 15 Blood Pressure 139/82 Pulse Oximetry 95 Oxygen Delivery 03/19/24 04:00 03/19/24 07:58 03/19/24 08:00 Temperature 98.5 F Pulse Rate 70 80 80 Respiratory Rate 20 Blood Pressure 135/99 H Pulse Oximetry 97 Oxygen Delivery Intake/Output Intake/Output: Intake & Output 03/16/24 03/17/24 03/18/24 03/19/24 23:59 23:59 23:59 23:59 Intake Total 3070 473 Output Total 1850 800 Balance 1220 -327 Meds/Results Medications: Active Medications Generic Name Dose Route Start Last Admin Trade Name Freq PRN Reason Stop Dose Admin Acetaminophen 650 mg 03/17/24 05:53 03/18/24 08:13 Acetaminophen 325 Mg Tablet PO 650 mg Q4H PRN Administration Mild Pain (1-3) or Fever Aspirin 81 mg 03/17/24 08:00 03/19/24 09:06 Aspirin 81 Mg Chewable Tablet PO 81 mg DAILY@0800 [facility] Administration Atorvastatin Calcium 80 mg 03/19/24 09:00 03/19/24 09:06 Atorvastatin 40 Mg Tablet PO 80 mg DAILY [facility] Administration Morphine Sulfate 4 mg 03/17/24 05:53 Morphine Sulfate (*Crx) 4 Mg/Ml Inj IV PUSH Q2H PRN Pain Rated 7-10 Nitroglycerin 1 inch 03/17/24 06:00 03/18/24 14:13 Nitroglycerin Ointment 1 Inch Dose TRANSDERM Not Given Q6HR [facility] Ondansetron HCl 4 mg 03/17/24 05:53 03/17/24 06:31 Ondansetron Inj 4 Mg/2 Ml Vial IV PUSH 4 mg Q4H PRN Administration Nausea Radiology Results: ITS Impressions Chest X-Ray 03/17/24 05:19 Impression: Normal chest. Lexiscan Stress Test 03/18/24 12:30 IMPRESSION: 1. Moderate-sized area of moderate severity infarct involving mid anterolateral segment and mid to basal inferolateral segments of left ventricle. 2. Normal left ventricular ejection fraction measuring 56%.
--- NOTE | 2024-03-19 11:53 | WPDHPUPDATE1 ---
History and Physical Update Update Date/Time: 03/19/24 10:03 History and Physical has been reviewed, including an updated exam of the patient. There are NO changes in the patient's condition. Risks, benefits, and alternatives have been discussed and questions answered. Patient agrees to proceed with procedure.
--- NOTE | 2024-03-19 11:54 | P.SEDATION_ITS ---
Moderate Sedation Note-Pt Data Patient Data Allergies Allergy/AdvReac Type Severity Reaction Status Date / Time No Known Allergies Allergy Verified 03/17/24 08:22 Home Medications ?Medication ?Instructions ?Recorded ?Confirmed ?Type No Home Medications 03/17/24 03/17/24 History Current Medications: Active Medications Acetaminophen (Acetaminophen 325 Mg Tablet) 650 mg PO Q4H PRN PRN Reason: Mild Pain (1-3) or Fever Last Admin: 03/18/24 08:13 Dose: 650 mg Aspirin (Aspirin 81 Mg Chewable Tablet) 81 mg PO DAILY@0800 [facility] [place] Last Admin: 03/19/24 09:06 Dose: 81 mg Atorvastatin Calcium (Atorvastatin 40 Mg Tablet) 80 mg PO DAILY [facility] Last Admin: 03/19/24 09:06 Dose: 80 mg Morphine Sulfate (Morphine Sulfate (*Crx) 4 Mg/Ml Inj) 4 mg IV PUSH Q2H PRN PRN Reason: Pain Rated 7-10 Nitroglycerin (Nitroglycerin Ointment 1 Inch Dose) 1 inch TRANSDERM Q6HR [facility] [place] Last Admin: 03/18/24 14:13 Dose: Not Given Ondansetron HCl (Ondansetron Inj 4 Mg/2 Ml Vial) 4 mg IV PUSH Q4H PRN PRN Reason: Nausea Last Admin: 03/17/24 06:31 Dose: 4 mg Sedation/Anesthesia: No previous sedation/anesthesia problems (including family history). [facility] Social History Social History Smoking status: Never smoker Alcohol intake: current Drinks per week: 10 Substance use: never Substance use type: does not use Do You Feel Safe in your Home?: Yes Lack of Transportation: No Lack of Food: Never True Current Housing: I Have Housing Concerned About Future Housing: No Difficulty Paying Gas/Electric Bills: No Difficulty Paying for Meds: No Currently Unemployed: No Education: High School Diploma/GED Difficulty w/ Childcare or Family Care: No Spiritual care concerns: No Mod Sed Physical Exam Physical Exam Pre Procedural Exam: Normal: Heart Size and Heart Rate Hours since solid foods: 12 Hours since liquid intake: 12 Mallampati Classification: class II Internal Medicine - PN: Obj Da Vital Signs Vital Signs: Vital Signs - 24 hr 03/18/24 12:20 03/18/24 14:00 03/18/24 15:19 Temperature Pulse Rate 93 94 Respiratory Rate Blood Pressure Pulse Oximetry 93 Oxygen Delivery Room Air 03/18/24 16:00 03/18/24 16:00 03/18/24 16:00 Temperature Pulse Rate 82 94 94 Respiratory Rate 14 Blood Pressure 135/79 Pulse Oximetry 97 Oxygen Delivery 03/18/24 18:00 03/18/24 19:58 03/18/24 20:00 Temperature 36.6 C Pulse Rate 83 79 79 Respiratory Rate 16 Blood Pressure 144/80 H Pulse Oximetry 97 Oxygen Delivery 03/18/24 22:00 03/19/24 00:00 03/19/24 00:00 Temperature 36.6 C Pulse Rate 82 66 69 Respiratory Rate 15 Blood Pressure 133/81 Pulse Oximetry 99 Oxygen Delivery 03/19/24 02:00 03/19/24 04:00 03/19/24 04:00 Temperature 36.5 C Pulse Rate 65 74 70 Respiratory Rate 15 Blood Pressure 139/82 Pulse Oximetry 95 Oxygen Delivery 03/19/24 07:58 03/19/24 08:00 03/19/24 11:29 Temperature 36.9 C 36.6 C Pulse Rate 80 80 70 Respiratory Rate 20 20 Blood Pressure 135/99 H 141/88 H Pulse Oximetry 97 100 Oxygen Delivery Intake/Output Intake/Output: Intake & Output 03/16/24 03/17/24 03/18/24 03/19/24 23:59 23:59 23:59 23:59 Intake Total 3070 473 Output Total 1850 800 Balance 1220 -327 Meds/Results Medications: Active Medications Generic Name Dose Route Start Last Admin Trade Name Kjq PRN Reason Stop Dose Admin Acetaminophen 650 mg 03/17/24 05:53 03/18/24 08:13 Acetaminophen 325 Mg Tablet PO 650 mg Q4H PRN Administration Mild Pain (1-3) or Fever Aspirin 81 mg 03/17/24 08:00 03/19/24 09:06 Aspirin 81 Mg Chewable Tablet PO 81 mg DAILY@0800 [facility] Administration Atorvastatin Calcium 80 mg 03/19/24 09:00 03/19/24 09:06 Atorvastatin 40 Mg Tablet PO 80 mg DAILY [facility] Administration Morphine Sulfate 4 mg 03/17/24 05:53 Morphine Sulfate (*Crx) 4 Mg/Ml Inj IV PUSH Q2H PRN Pain Rated 7-10 Nitroglycerin 1 inch 03/17/24 06:00 03/18/24 14:13 Nitroglycerin Ointment 1 Inch Dose TRANSDERM Not Given Q6HR [facility] Ondansetron HCl 4 mg 03/17/24 05:53 03/17/24 06:31 Ondansetron Inj 4 Mg/2 Ml Vial IV PUSH 4 mg Q4H PRN Administration Nausea Radiology Results: ITS Impressions Chest X-Ray 03/17/24 05:19 Impression: Normal chest. Lexiscan Stress Test 03/18/24 12:30 IMPRESSION: 1. Moderate-sized area of moderate severity infarct involving mid anterolateral segment and mid to basal inferolateral segments of left ventricle. 2. Normal left ventricular ejection fraction measuring 56%. Labs 03/18/24 04:28 03/17/24 01:56 ASA Classification/Sedation ASA Classification/Sedation ASA Class: III Emergent: No Risks: Risks, benefits and alternatives explained and patient/family accepted plan for sedation. Patient re-evaluated immediately prior to sedation.
--- NOTE | 2024-03-19 12:54 | PC.NURSE ---
1200- to cardiac experimental machining lab manager for procedure
[2024-03-19 13:36] LABS: Activated Clotting Time 176 SEC (74-137)
--- NOTE | 2024-03-19 13:57 | WPDCARDPROC ---
Cardiac Cath Procedure Note Date of procedure:: 03/19/24 Performing physician:: CATHETERIZATION LABORATORY REPORT Procedure Date: 03/19/2024 Referring Physician: Dr. Collins Anesthesia: Versed and Fentanyl were ordered and given in my presence at 1228, procedure ended at 1320. Supervision of nurse, Kirsten Salazar monitored moderate sedation with 2mg Versed and 100mcg Fentanyl was provided for 52 minutes. Pre-op Diagnosis: Unstable Angina Post-op Diagnosis: Unstable Angina Procedure(s): Left heart catheterization with coronary angiography Percutaneous coronary intervention Access Site: Right radial artery Brief History and Clinical Indications: 63-year-old man with hypertension presented with angina at rest who underwent nuclear stress test with lateral wall infarct for which a left heart catheterization with possible percutaneous coronary intervention was recommended the in setting of persistent chest pain at rest All risks, benefits and alternatives to left heart catheterization with or without percutaneous coronary intervention was discussed at length with the patient. Risk of complications including but not limited to bleeding, infection, arrhythmia, stroke, worsening kidney function, blood loss, groin hematoma, limb loss, emergency coronary artery bypass grafting, and even were discussed with the patient and all questions were answered. The patient understood and wished to proceed. Time out called, patient name, date of , medical record number, allergies, procedure performed, identify Judicial Clerk, patient and staff member concurred with accurate data, procedure carried on. Findings: LEFT HEART CATHETERIZATION FINDINGS: 1. Left main: The left main coronary artery is widely patent without any significant obstructive disease. 2. Left anterior descending: The LAD is a large caliber vessel that gives off 1 meaningful diagonal branch. The diagonal branch has mild 10-20% stenosis in its ostium. The LAD has 10-20% stenosis at its ostium and proximal body. In its midbody after the takeoff of the 1st diagonal branch, there is a 30-40% stenosis. 3. Left circumflex: The left circumflex artery is a moderate caliber vessel that becomes at OM1 vessel. In its proximal body, there is a 80-90% stenosis. 4. Ramus intermedius: The ramus intermedius is a large caliber vessel with luminal irregularities 5. Right coronary artery: The RCA is a large dominant vessel with diffuse 20-30% stenosis throughout its vessel. The distal RCA has 30-40% stenosis. The right PDA and right PL branches have luminal irregularities. 6. Left ventricle: A. End-diastolic pressure 11 mmHg. B. LV gram deferred. C. No significant gradient across aortic valve on catheter pullback. 7. Opening AO pressure 139/79 and closing AO pressure 134/65 Description of Procedure: Informed consent signed and placed in the chart. Patient transferred to cath laboratory technician room. Prepped and draped in usual sterile fashion. 2% lidocaine injected subcutaneously in right wrist area. 22-gauge venipuncture catheter used to access the right radial artery with the Seldinger technique. 6-FR slender sheath placed in right radial artery. Nitroglycerin 200mcg, Verapamil 2.5mg, and Heparin 5000U was given intraarterial through the sheath. J wire advanced under fluoroscopy 5F TIG diagnostic catheter engaged Left Main Coronary Artery. 5F JR4 diagnostic catheter engaged Right Coronary Artery Multiple orthogonal angiogram obtained and reviewed 5F Pigtail diagnostic catheter crossed aortic valve to obtain LVEDP, LV angiogram deferred. Procedure Description for PCI: Heparin was used for anticoagulation (ACT maintained above 250) Patient loaded with heparin at 70 units/kg. 6F EBU 3.5 guide catheter was used to intubate the LMCA. 0.014 Runthrough coronary wire was passed in to the distal OM1. The lesion was pre-dilated with a 2.0mm x 15 mm balloon inflated to high JONN. An attempt was made to pass the stent into the lesion; however I was unable to cross. 0.014 BMW coronary wire was passed into the distal OM1 and a Runthough wire that is already in the OM1 vessel was used as a tammy wire. With the assistance of a tammy wire, the 2.75mm x 22mm [place] CHERELLE was successfully deployed into proximal left circumflex lesion. The stent was post-dilated with a 3.0mm x 15mm NC balloon inflated to high JONN. Follow-up angiograms showed an excellent result. Coronary wire and guide-catheter were removed under fluoroscopy. Pre-procedure - ANU 3 flow Post-procedure - ANU 3 flow No angiographic complications identified. Assessment: Successful PCI to the proximal left circumflex with a 2.75 x 22mm [place] Centrahoma CHERELLE; post dilated with a 3.0 x 15mm NC to 18atm with excellent angiographic results. Post Operative Condition: Stable No significant blood loss Disposition: Floor or home Plan: The patient will be monitored in the recovery area and return to his room. If patient is feeling well, he can be discharged this evening as long as he has his medications delivered to bedside. He should be on aspirin 81 mg daily indefinitely. He should be on clopidogrel 75 mg p.o. daily for a minimum 1 year. He is quite hypertensive, and it would be reasonable to start carvedilol 12.5 mg p.o. b.i.d. for goal systolic blood pressure less than 130 mm Hg. If he tolerates the carvedilol and requires additional antihypertensives, would recommend losartan 25 mg p.o. daily. However this can be reassessed outpatient. He does have increase plaque burden in his coronary vasculature and should be on high-intensity statin such as atorvastatin 80 mg every evening. Eligio Ruth Interventional Cardiology
[2024-03-19] MEDS: SODIUM CHLORIDE 0.9% IV 1,000 ML 125 ML IV CONT (15:06)
--- NOTE | 2024-03-19 19:57 | PC.NURSE ---
1840- resumed care of pt post cardiac cath- discussed with pt post op activity and procedure site assessment; armboard in place to r arm and elevated onto pillow- pt / verbalized understanding
[2024-03-19] MEDS: carvediloL 12.5 MG TABLET PO (21:25)
[2024-03-20] VITALS (9 sets, daily range): BP systolic 119–164; BP diastolic 73–80; PULSE 58–76; RESP 15–18; TEMP 36.6–36.7; O2SAT 98–100
--- NOTE | 2024-03-20 | ECHO_ITS ---
Patient Info Name: Misha Roman Age: 63 years : 1960 Gender: Male Ht: 72 in Wt: 209 lbs BSA: 2.21 m2 HR: 66 bpm BP: 164 / 80 mmHg Heart Rhythm: Sinus Rhythm Technical Quality: Fair Exam Date: 03/20/2024 11:41 AM Exam Location: Echo Lab Patient Status: Inpatient Admit Date: 03/17/2024 Staff Ordering Physician: Hamilton Thomson MD Opto Mechanical Engineer: Hong Becerra RDCS Attending Provider: Elizabeth Latham DO Exam Type: CA echo dop color flow w con Study Info Indications - NSTEMI Complete two-dimensional, color flow and Doppler transthoracic echocardiogram is performed with contrast to opacify the left ventricle and to improve the deliniation of the left ventricle endocardial borders. Contrast/Agitated Saline Contrast/Ag. Saline: Definity Amount: 2.00 ml Existing IV Access: Yes Summary 1. Left ventricular chamber dimension is normal. 2. Left ventricular systolic function is normal, estimated at 55-60%. 3. There is moderately increased left ventricular wall thickness. 4. The left ventricular diastolic function is grade I diastolic dysfunction. 5. Right ventricular systolic function is normal. 6. There is mild aortic valve regurgitation. Left Ventricle Left ventricular chamber dimension is normal. Left ventricular systolic function is normal, estimated at 55-60%. There is moderately increased left ventricular wall thickness. The left ventricular diastolic function is grade I diastolic dysfunction. Right Ventricle Right ventricular chamber dimension is normal. Right ventricular systolic function is normal. Left Atria Left atrial chamber dimension is normal. Right Atria Right atrial chamber dimension is normal. Atrial Septum Intact interatrial septum visualized by color flow imaging. Aortic Valve The aortic valve is probable trileaflet. There is no aortic valve stenosis. There is mild aortic valve regurgitation. There is mild aortic valve calcification. Pulmonic Valve The pulmonic valve is not well visualized. Mitral Valve There is trace mitral valve regurgitation. Tricuspid Valve There is trace tricuspid valve regurgitation. Pericardium/Pleural The pericardium appears epicardial fat pad. There is no pericardial effusion. Inferior Vena Cava Normal inferior vena cava with <50% collapse upon inspiration consistent with elevated right atrial pressure, 8 mmHg. Aorta The aortic root size at the sinus of Valsalva is normal. Left Ventricular Outflow Tract Name Value Normal LVOT 2D LVOT Diameter 2.43 cm LVOT Doppler LVOT Peak Gradient 2 mmHg LVOT Mean Gradient 1 mmHg LVOT VTI 16.31 cm LVOT VTI/AV VTI Ratio 0.43 LVOT Stroke Volume 75.88 ml LVOT CO 4.68 l/min LVOT CI 2.11 L/min/m2 Pulmonic Valve Name Value Normal RVOT Doppler RVOT Peak Gradient 1 mmHg PV Doppler PV Peak Gradient 2 mmHg Mitral Valve Name Value Normal MV Doppler MV Decel Ross 216.83 cm/s2 MV PHT 0 s MV Area (PHT) 3.21 cm2 4.00-5.00 MV Diastolic Function MV E Peak Velocity 51.21 cm/s MV A Peak Velocity 71.67 cm/s MV E/A 0.71 MV Decel Time 0 s MV Annular TDI MV E/e' (Septal) 7.63 <=8.00 MV E/e' (Lateral) 5.33 <=8.00 MV E/e' (Average) 6.48 Tricuspid Valve Name Value Normal Estimated PAP/RSVP RA Pressure 8 mmHg <=5 Aorta Name Value Normal Ascending Aorta Ao Root Diameter (MM) 4.20 cm Ao Root Diam Index (MM) 1.90 cm/m2 Aortic Valve Name Value Normal AV Doppler AV Peak Velocity 168.54 cm/s AV Peak Gradient 11 mmHg AV Mean Gradient 7 mmHg AV VTI 38.04 cm AV Area (Cont Eq VTI) 2.00 cm2 >=3.00 AV Area (Cont Eq Buck) 1.80 cm2 AV Regurgitation 2D LVOT Area 4.65 cm2 AV Regurgitation Doppler AR Decel Time 2 s AR Decel Ross 160.62 cm/s2 AR PHT 1 s Ventricles Name Value Normal LV Dimensions 2D/MM IVS Diastolic Thickness (2D) 1.25 cm 0.60-1.00 LVID Diastole (2D) 4.75 cm 4.20-5.80 LVIW Diastolic Thickness (2D) 1.27 cm 0.60-1.00 LVID Systole (2D) 3.27 cm 2.50-4.00 LVOT Diameter 2.43 cm LV Mass (2D Cubed) 231.55 g 88.00-224.00 LV Mass Index (2D Cubed) 0.01 g/cm2 0.00-0.01 Relative Wall Thickness (2D) 0.54 LV Fractional Shortening/Ejection Fraction 2D/MM LV Fractional Shortening (2D) 33 % 25-43 LV EF (2D Teicholz) 61 % 52-72 LV Diastolic Volume (4C MOD) 100.16 ml LV EF (4C MOD) 58 % LV Diastolic Volume (2C MOD) 82.16 ml LV EF (2C MOD) 39 % LV Diastolic Volume (BP MOD) 91.45 ml 62.00-150.00 LV Diastolic Volume Index (BP MOD) 0.04 l/m2 0.03-0.07 LV Systolic Volume (BP MOD) 45.51 ml 21.00-61.00 LV Systolic Volume Index (BP MOD) 0.02 l/m2 0.01-0.03 LV EF (BP MOD) 50 % 52-72 LV Diastolic Length (4C) 8.80 cm LV Systolic Length (4C) 7.52 cm LV Stroke Volume (4C MOD) 58.49 ml Atria Name Value Normal LA Dimensions LA Dimension (MM) 2.85 cm 3.00-4.10 LA Volume (4C A-L) 30.76 ml LA Volume (BP A-L) 43.19 ml RA Dimensions RA Area (4C) 11.40 cm2 <=18.00 Report Signatures
[2024-03-20] MEDS: CLOPIDOGREL BISULFATE 75 MG TABLET PO (08:57)
[2024-03-20] MEDS: ATORVASTATIN 40 MG TABLET 80 MG PO (08:57)
[2024-03-20] MEDS: ASPIRIN 81 MG CHEWABLE TABLET PO (08:58)
[2024-03-20] MEDS: carvediloL 12.5 MG TABLET PO (08:58)
--- NOTE | 2024-03-20 11:33 | P.PNCA_ITS ---
Progress Note: A&P Assessment and Plan (1) Unstable angina: Code(s): I20.0 - Unstable angina Status: Acute Assessment and Plan: S/p successful PCI to the proximal left circumflex with CHERELLE x 1. Continue ASA 81mg once daily indefinitely. Continue Plavix 75mg once daily for at least 1 year. Continue high intensity statin. Continue beta jitendra. Echocardiogram ordered and pending. Outpatient cardiac rehab. (2) Coronary artery disease: Code(s): I25.10 - Atherosclerotic heart disease of [place] coronary artery without angina pectoris Status: Acute Assessment and Plan: As above. (3) Uncontrolled hypertension: Code(s): I10 - Essential (primary) hypertension Status: Acute Assessment and Plan: Continue Carvedilol. Plan Okay to discharge home from a cardiac standpoint. Will arrange follow up in our office. Recommendations and plan discussed with Hospitalist. Subjective Date/time seen: 03/20/24 11:33 Interval history: Reason for visit: Chest pain HPI: Misha Roman is a 63-year-old male with no past medical history. He states that he does not see a doctor. This is a patient who comes to the hospital with a chief complaint of chest pain. Patient developed chest pain the workup from a sleep last night. He describes the pain as a central, pressure- like sensation and feels as if someone is sitting on his chest. Pain has been consistent since onset and increases and decreases in severity. The pain does not radiate to any other areas of the body. He denies any shortness of breath, palpitations, swelling, syncope, presyncope. He does endorse a history of exertional angina. He states an example of shoveling the snow yesterday and having some mild chest discomfort. At the time of my evaluation, he is com fortable and rates his chest discomfort at a 2/10. Of note, his serial troponin levels have been negative and EKG does not have any acute ischemic changes. Date of service 03/18: No longer having any chest pain. Feeling well. Date of service 03/20: Doing well post PCI. Review of Systems Review of Systems: All systems reviewed & are unremarkable except as noted in HPI and below (HPI) Exam Const: General: comfortable and no acute distress HENMT: Mouth: Yes moist mucous membranes Eyes: General: appearance normal, both eyes and all related structures Sclera: sclerae normal Resp: Effort & Inspection: normal respiratory effort Cardio: Rate: regular rate Rhythm: regular rhythm Skin: General skin exam: normal color Neuro: Speech: normal speech Psych: Mental Status: mental status grossly normal Affect: normal affect Objective Data Vital Signs Vital Signs: Vital Signs - 24 hr 03/19/24 12:00 03/19/24 13:45 03/19/24 13:45 Temperature 36.3 C L Pulse Rate 97 72 Pulse Rate [Monitor] 72 Respiratory Rate 15 Blood Pressure 155/94 H Pulse Oximetry 98 Oxygen Delivery Room Air 03/19/24 14:00 03/19/24 14:00 03/19/24 14:15 Temperature Pulse Rate 76 78 Pulse Rate [Monitor] 76 Respiratory Rate 13 14 Blood Pressure 154/100 H 158/93 H Pulse Oximetry 98 98 Oxygen Delivery Room Air Room Air 03/19/24 14:15 03/19/24 14:30 03/19/24 14:30 Temperature Pulse Rate 83 Pulse Rate [Monitor] 78 83 Respiratory Rate 14 Blood Pressure 162/96 H Pulse Oximetry 97 Oxygen Delivery Room Air 03/19/24 14:45 03/19/24 14:45 03/19/24 15:00 Temperature Pulse Rate 84 88 Pulse Rate [Monitor] 84 Respiratory Rate 20 17 Blood Pressure 160/88 H 165/104 H Pulse Oximetry 96 96 Oxygen Delivery Room Air Room Air 03/19/24 15:00 03/19/24 15:15 03/19/24 15:15 Temperature Pulse Rate 93 Pulse Rate [Monitor] 88 93 Respiratory Rate 18 Blood Pressure 158/92 H Pulse Oximetry 96 Oxygen Delivery Room Air 03/19/24 15:30 03/19/24 15:30 03/19/24 15:45 Temperature Pulse Rate 95 90 Pulse Rate [Monitor] 95 Respiratory Rate 22 H 16 Blood Pressure 151/89 H 153/88 H Pulse Oximetry 97 97 Oxygen Delivery Room Air Room Air 03/19/24 15:45 03/19/24 16:00 03/19/24 16:00 Temperature Pulse Rate 87 Pulse Rate [Monitor] 90 87 Respiratory Rate 21 H Blood Pressure 151/86 H Pulse Oximetry 97 Oxygen Delivery Room Air 03/19/24 16:15 03/19/24 16:15 03/19/24 16:33 Temperature Pulse Rate 83 82 Pulse Rate [Monitor] 83 Respiratory Rate 18 19 Blood Pressure 157/97 H 159/55 H Pulse Oximetry 97 97 Oxygen Delivery Room Air Room Air 03/19/24 16:33 03/19/24 16:45 03/19/24 16:45 Temperature Pulse Rate 80 Pulse Rate [Monitor] 82 80 Respiratory Rate 20 Blood Pressure 160/98 H Pulse Oximetry 97 Oxygen Delivery Room Air 03/19/24 17:00 03/19/24 17:00 03/19/24 17:15 Temperature Pulse Rate 84 81 Pulse Rate [Monitor] 84 Respiratory Rate 20 18 Blood Pressure 137/94 H 137/94 H Pulse Oximetry 99 98 Oxygen Delivery Room Air Room Air 03/19/24 17:15 03/19/24 17:29 03/19/24 17:29 Temperature Pulse Rate 80 Pulse Rate [Monitor] 81 80 Respiratory Rate 16 Blood Pressure 158/86 H Pulse Oximetry 98 Oxygen Delivery Room Air 03/19/24 17:45 03/19/24 18:00 03/19/24 18:30 Temperature 36.6 C 36.6 C 36.6 C Pulse Rate 70 70 73 Pulse Rate [Monitor] Respiratory Rate 16 16 16 Blood Pressure 157/93 H 163/97 H 162/93 H Pulse Oximetry 99 98 99 Oxygen Delivery Room Air Room Air Room Air 03/19/24 19:00 03/19/24 19:56 03/19/24 20:00 Temperature 36.8 C 36.8 C Pulse Rate 75 77 58 L Pulse Rate [Monitor] Respiratory Rate 16 16 Blood Pressure 140/84 144/84 H Pulse Oximetry 99 98 Oxygen Delivery 03/19/24 21:00 03/19/24 21:25 03/19/24 22:00 Temperature 36.6 C 36.6 C Pulse Rate 76 78 82 Pulse Rate [Monitor] Respiratory Rate 16 16 Blood Pressure 149/86 H 101/5 L Pulse Oximetry 98 98 Oxygen Delivery 03/19/24 22:00 03/19/24 23:58 03/20/24 00:00 Temperature 36.6 C Pulse Rate 79 75 58 L Pulse Rate [Monitor] Respiratory Rate 16 Blood Pressure 132/80 Pulse Oximetry 97 Oxygen Delivery 03/20/24 02:00 03/20/24 04:00 03/20/24 04:00 Temperature 36.6 C Pulse Rate 76 70 62 Pulse Rate [Monitor] Respiratory Rate 15 Blood Pressure 134/79 Pulse Oximetry 100 Oxygen Delivery 03/20/24 08:13 03/20/24 08:58 Temperature 36.7 C Pulse Rate 66 72 Pulse Rate [Monitor] Respiratory Rate 18 Blood Pressure 164/80 H Pulse Oximetry 98 Oxygen Delivery Intake/Output Intake/Output: Intake & Output 03/17/24 03/18/24 03/19/24 03/20/24 23:59 23:59 23:59 23:59 Intake Total 3070 713 840 Output Total 1850 1200 700 Balance 1220 -487 140 Meds/Results Medications: Active Medications Generic Name Dose Route Start Last Admin Trade Name Freq PRN Reason Stop Dose Admin Acetaminophen 650 mg 03/17/24 05:53 03/18/24 08:13 Acetaminophen 325 Mg Tablet PO 650 mg Q4H PRN Administration Mild Pain (1-3) or Fever Aspirin 81 mg 03/17/24 08:00 03/20/24 08:58 Aspirin 81 Mg Chewable Tablet PO 81 mg DAILY@0800 TADEO Administration Atorvastatin Calcium 80 mg 03/19/24 09:00 03/20/24 08:57 Atorvastatin 40 Mg Tablet PO 80 mg DAILY TADEO Administration Carvedilol 12.5 mg 03/19/24 21:00 03/20/24 08:58 Carvedilol 12.5 Mg Tablet PO 12.5 mg Q12HR TADEO Administration Clopidogrel Bisulfate 75 mg 03/20/24 09:00 03/20/24 08:57 Clopidogrel Bisulfate 75 Mg Tablet PO 75 mg QAM TADEO Administration Ondansetron HCl 4 mg 03/17/24 05:53 03/17/24 06:31 Ondansetron Inj 4 Mg/2 Ml Vial IV PUSH 4 mg Q4H PRN Administration Nausea Perflutren Lipid Microsphere 0 ml 03/20/24 10:11 Perflutren Lipid Microspheres 1.5 Ml Vial Diluted To 10 Ml Total Volume IV PUSH 03/23/24 10:11 ONCE PRN adequate visualization Protocol Radiology Results: ITS Impressions Chest X-Ray 03/17/24 05:19 Impression: Normal chest. Lexiscan Stress Test 03/18/24 12:30 IMPRESSION: 1. Moderate-sized area of moderate severity infarct involving mid anterolateral segment and mid to basal inferolateral segments of left ventricle. 2. Normal left ventricular ejection fraction measuring 56%. Labs Labs: Laboratory Results - last 24 hr 03/19/24 13:25 Activ Coag Time [place] 176 H
[2024-03-20] MEDS: PERFLUTREN LIPID MICROSPHERES 1.5 ML VIAL DILUTED TO 10 ML TOTAL VOLUME IV PUSH (12:30)
--- NOTE | 2024-03-20 12:44 | P.DS_ITS ---
DS: Admitting Diagnosis Discharge Date 03/20/24 Admitting Diagnosis Chest pain DS: Discharge Diagnosis Discharge Diagnosis (1) Coronary artery disease: Code(s): I25.10 - Atherosclerotic heart disease of [place] coronary artery without angina pectoris Status: Acute DS: Summary Hospital Course Hospital Course: 63 years old gentleman without significant past medical history present ED with a chief complaint of chest pain. Patient started have chest pain yesterday evening, locating left chest, pressure-like and sharp pain without radiation. Patient denies cough, shortness breath, nausea vomiting diarrhea acid reflux Patient has upper respiratory infection in past weeks Upon arrival in ED, patient has uncontrolled blood pressure 160/88, pulse ox 99 on room air, afebrile, CBC and chemistry unremarkable, influenza and COVID negative, troponin negative x2, less than 0.012 EKG shows sinus rhythm, no specific ST or T-wave changes. Chest x-ray shows no acute cardiopulmonary issues In the ED, patient received aspirin, nitro paste now patient has no chest pain Cardiology was consulted and patient underwent cardiac cath with PCI to left circumflex wtih CHERELLE. Patient discharged on Aspirin, Plavix, Metoprolol and Lipitor. ECHO was done and cardiology will follow up with the reports and adjust care accordingly outpatient. Blood pressure is controlled with Coreg. Patient will continue follow up cardiology as instructed and PCP in 3-5 days Time Spent with Patient Time attestation: Total time spent providing and/or coordinating discharge services: DS: Data Data Completed and Pending Labs on day of discharge: Labs from last 24 hours 03/19/24 13:25 Activ Coag Time [place] 176 H Discharge Plan Discharge Attending physician on discharge: Tierra Collins Consulting providers: Bhupinder Chacon Discharging Clinician: Tierra Collins Patient Disposition: Home, Self-Care Activity: as tolerated Diet: heart healthy Discharge Instructions: [facility] [address] [place] [address] DISCHARGE INSTRUCTIONS - POST RADIAL CATH Activity 1. No driving for 24 hours. 2. No lifting more than 5 lb with affected arm for 1 week. 3. May shower ( tomorrow) but no excessive soaking of affected hand/wrist (such as washing dishes), swimming pool or hot tub for 5 days. Wound Care 1. May remove arm board in the morning. 2. May remove gauze dressing in the morning and put Band-Aid over affected radial site. Keep site covered for 3 days. 3. Observe for redness, drainage, swelling or bleeding. Medications DO NOT STOP YOUR MEDICATIONS ONLY YOUR BACK PANEL PADDER CAN STOP THE FOLLOWING MEDICATIONS - PLEASE CALL THE OFFICE WITH QUESTIONS. *Aspirin *Ticagrelor (Brilinta) *Atorvastatin *Lisinopril or ARB *Metoprolol tartrate or succinate *Clopidogrel (Plavix) *Prasugrel (Effient) Important Reminders 1. Keep your stent card in your wallet at all times 2. Follow a heart healthy diet paying extra attention to cholesterol and fats. 3. Stay hydrated. 4. If you have chest pain unrelieved by rest or nitroglycerin (if prescribed) call 911 immediately. 5. If you miss one dose of Brilinta (if prescribed) take a tablet at the next time due. If you miss 2 doses take a tablet when you remember and resume at the next time due. *For any other questions please call the office at [phone]. Office hours are 8AM 4:30PM Saturday through Saturday. Patient Instructions: Antibiotic Form Patient Language: [place] Stand Alone Forms: General Discharge Information Follow-up/Referrals: PHYSICIAN,AUTO MECHANICS INSTRUCTOR [Primary Care Provider] - (See primary care doctor in 1 week) Bhupinder Chacon MD [Physician] - (See time buyer at scheduled appointment) Discharge Medications: New aspirin 81 mg Tablet,Chewable 81 mg PO DAILY@0800 Qty: 90 3RF atorvastatin 40 mg Tablet 80 mg PO HS Qty: 90 3RF carvedilol [Coreg] 12.5 mg Tablet 12.5 mg PO Q12HR Qty: 90 3RF clopidogrel 75 mg Tablet 75 mg PO QAM Qty: 90 3RF Date of admission: 03/17/24 05:53 Primary Care Provider: PHYSICIAN,AUTO MECHANICS INSTRUCTOR Admitting Provider: Elizabeth Latham Attending physician on admission: Elizabeth Latham Condition: Stable
--- NOTE | 2024-03-20 12:46 | IVDEFINITY ---
Prior to administration of IV Definity the patient was educated on the risks and benefits of the imaging enhancing agent including potential adverse side effects. The patient verbalized understanding. Allergies were verified. No exclusion criteria were identified and at least one of the following inclusion criteria were met: 1) physician request, 2) patient technically difficult to image (per the [place] [employer] guidelines of two or more segments not discernable within the apical view), or 3) questionable left ventricular function. ?
--- OUTSIDE RECORDS SUMMARY | 2024-03-23 11:18 | XMS_ITS | Encounter Summary ---
Author Organization [facility] Address [address] [place], [place] [id number] [place] [id number] Care Team Providers Care Bi Application Developer Name Role Phone Unavailable Primary Care Provider Unavailabl e Encounter Details Date Type Department Care Team (Latest Contact Info) Description 10/22/2012 Abstract [facility] Ian Gutierrez MD [address] [place] [address] Social History Tobacco Use Types Packs/Day Years Used Date Smoking Tobacco: Never Assessed Sex and Gender Information Value Date Recorded Sex Assigned at Not on file Legal Sex Male 8:13 PM CDT Gender Identity Not on file Sexual Orientation Not on file documented as of this encounter Plan of Treatment Not on file documented as of this encounter Visit Diagnoses Not on filedocumented in this encounter
--- OUTSIDE RECORDS SUMMARY | 2024-03-23 11:18 | XMS_ITS | Clinical Summary ---
Author Organization [facility] Address [address] [place] [address] Care Team Providers Care Interactive Media Designer Name Role Phone Unavailable Primary Care Provider Unavailabl e Source Comments [facility],non-owned Affiliates and Associated Physician Practices is amultiple site organization consisting of ambulatory clinics and hospital sitesin [place], [place] and [place]. This disclosure is being madepursuant to the Care Everywhere program and may not contain all information available regarding this patient. Last updated 17.[facility] Allergies No known active allergies Medications * Be aware that medications may not be up to date on this document. Alwaysverify current medications with the patient. Medication Sig Dispensed Refills Start Date End Date Status ondansetron, disintegrating, (ZOFRAN ODT) 8 MG tablet Take 1 tablet by mouth every 6 hours as needed for Nausea/Vomiting Allow tablet to dissolve on the tongue 10 tablet 10/01/2018 Active Social History Tobacco Use Types Packs/Day Years Used Date Smoking Tobacco: Never Smokeless Tobacco: Never Alcohol Use Standard Drinks/Week Comments Yes 0 (1 standard drink = 0.6 oz pur e alcohol) Sex and Gender Information Value Date Recorded Sex Assigned at Not on file Gender Identity Not on file Sexual Orientation Not on file Last Filed Vital Signs Vital Sign Reading Time Taken Comments Blood Pressure 154/99 10/01/2018 11:04 PM CDT Pulse 92 10/01/2018 11:05 PM CDT Temperature 36.5 ??C (97.7 ??F) 10/01/2018 8:37 PM CD T Respiratory Rate 20 10/01/2018 11:0 5 PM CDT Oxygen Saturation 95% 10/01/2018 11: 05 PM CDT Inhaled Oxygen Concentration - - Weight 97.9 kg (215 lb 13.3 oz) 10/01/2018 8:37 PM CDT Height 182.9 cm (6') 10/01/2018 8:37 PM CDT Body Mass Index 29.27 10/01/2018 8:37 PM CDT Plan of Treatment Health Maintenance Due Date Last Done Comments COLOGUARD (AGES 45-75) - COL ON CA SCREENING 1960 COLON MONITORING 1960 COLONOSCOPY - COLON CA SCREENING 1960 CT COLONOGRAPHY - COLON CA SCREENING 1960 Colorectal Cancer Screening 1960 FIT - COLON CA SCREENING 1960 FLEX SIG - COLON CA SCREENING 1960 LIPID TESTING 1960 HIV SCREENING 12/29/1975 HEPATITIS C SCREENING 12/24/1978 DTAP/TDAP/TD VACCINES (1 - Tdap) 12/29/1979 ZOSTER VACCINE (1 of 2) 2010 COVID-19 VACCINE (1 - 2023-2 5 season) 2023 INFLUENZA VACCINE (#1) 2023 DEPRESSION SCREENING 03/11/2024 Respiratory Syncytial Virus (RSV) Vaccine Pt: or over 60 yrs (1 - 1-dose 75+ series) 12/29/2035 HEPATITIS B VACCINE Aged Out No longe r eligible based on patient's age to complete this topic HIB VACCINE Aged Out No longer eligi ble based on patient's age to complete this topic HPV VACCINE Aged Out No longer eligi ble based on patient's age to complete this topic MENINGOCOCCAL VACCINE Aged Out No pedro nelia eligible based on patient's age to complete this topic PNEUMOCOCCAL VACCINE Aged Out No long er eligible based on patient's age to complete this topic
--- OUTSIDE RECORDS SUMMARY | 2024-03-23 11:18 | XMS_ITS | Clinical Summary ---
Author Organization [facility] Address [facility] [facility]. [place], [place] [address] [place] [address] Care Team Providers Care Insurance Executive Name Role Phone Unavailable Primary Care Provider Unavailabl e Social History Tobacco Use Types Packs/Day Years Used Date Smoking Tobacco: Never Assessed Sex and Gender Information Value Date Recorded Sex Assigned at Not on file Legal Sex Male 8:13 PM CDT Gender Identity Not on file Sexual Orientation Not on file Last Filed Vital Signs Vital Sign Reading Time Taken Comments Blood Pressure 126/76 10/23/2012 3:06 PM CDT Pulse 74 10/23/2012 3:06 PM CDT Temperature - - Respiratory Rate - - Oxygen Saturation - - Inhaled Oxygen Concentration - - Weight 103.4 kg (228 lb) 10/23/2012 3:06 PM CDT Height 185.4 cm (6' 1 ) 10/23/2012 3:06 PM CDT Body Mass Index 30.08 10/23/2012 3:06 PM CDT Plan of Treatment Health Maintenance Due Date Last Done Comments Colorectal Cancer Screening Colonoscopy (10 Years) 1960 Annual Physical 12/29/1963 Hepatitis C 1978 DTaP, Tdap and Td Vaccines ( 1 - Tdap) 12/29/1979 Zoster Vaccines (1 of 2) 2010 COVID-19 Vaccine ( - 2023-2 5 season) 2023 Influenza Adult (#1) 2023 RSV Immunization or 60+ Years (1 - 1-dose 75+ series) 12/29/2035 Meningococcal Vaccine Aged Out No pedro nelia eligible based on patient's age to complete this topic Pneumococcal Vaccine: Pediat rics (0 to 5 Years) and At-Risk Patients (6 to 64 Years) Aged Out No longer eligible b ased on patient's age to complete this topic RSV Immunizations Under 20 Months Aged Out No longer eligible based on patient's age to complete this topic
--- OUTSIDE RECORDS SUMMARY | 2024-03-23 11:18 | XMS_ITS | Encounter Summary ---
Author Organization [facility] Address [address] [place] [address] Care Team Providers Care Supervisor Records Change Name Role Phone Unavailable Primary Care Provider Unavailabl e Reason for Visit * Reason Comments Vomiting Encounter Details Date Type Department Care Team (Late st Contact Info) Description 10/01/2018 9:08 PM CDT - 10/01/2018 11:20 PM CDT Emergency ER at [facility] [address] [place] [address] Gene Bledsoe, DO [address] [place] [address] Nausea and vomiting, intractability of vomiting not specified, unspecified vomiting type Discharge Disposition: Home or Self Care Social History Tobacco Use Types Packs/Day Years Used Date Smoking Tobacco: Never Smokeless Tobacco: Never Alcohol Use Standard Drinks/Week Comments Yes 0 (1 standard drink = 0.6 oz pur e alcohol) Sex and Gender Information Value Date Recorded Sex Assigned at Not on file Gender Identity Not on file Sexual Orientation Not on file documented as of this encounter Last Filed Vital Signs Vital Sign Reading [...] Mass Index 29.27 10/01/2018 8:37 PM CDT documented in this encounter Discharge Instructions * Discharge Instructions* Gene Bledsoe, - 10/01/2018 11:10 PM CDT Acute Nausea and Vomiting WHAT YOU NEED TO KNOW: Acute nausea and vomiting start suddenly, worsen quickly, and last a short time. DISCHARGE INSTRUCTIONS: Return to the emergency department if: ?? You see blood in your vomit or your bowel movements. ?? You have sudden, severe pain in your chest and upper abdomen after hard vomiting or retching. ?? You have swelling in your neck and chest. ?? You are dizzy, cold, and thirsty and your eyes and mouth are dry. ?? You are urinating very little or not at all. ?? You have muscle weakness, leg cramps, and trouble breathing. ?? Your heart is beating much faster than normal. ?? You continue to vomit for more than 48 hours. Contact your healthcare provider if: ?? You have frequent dry heaves (vomiting but nothing comes out). ?? Your nausea and vomiting does not get better or go away after you use medicine. ?? You have questions or concerns about your condition or treatment. Medicines: You may need any of the following: ?? Medicines may be given to calm your stomach and stop your vomiting. You may also need medicines to help you feel more relaxed or to stop nausea and vomiting caused by motion sickness. ?? Gastrointestinal stimulants are used to help empty your stomach and bowels. This may help decrease nausea and vomiting. ?? Take your medicine as directed. Contact your healthcare provider if you think your medicine is not helping or if you have side effects. Tell him or her if you are allergic to any medicine. Keep a list of the medicines, vitamins, and herbs you take. Include the amounts, and when and why you take them. Bring the list or the pill bottles to follow-up visits. Carry your medicine list with you in case of an emergency. Prevent or manage acute nausea and vomiting: ?? Do not drink alcohol. Alcohol may upset or irritate your stomach. Too much alcohol can also cause acute nausea and vomiting. ?? Control stress. Headaches due to stress may cause nausea and vomiting. Find ways to relax and manage your stress. Get more rest and sleep. ?? Drink more liquids as directed. Vomiting can lead to dehydration. It is important to drink more liquids to help replace lost body fluids. Ask your healthcare provider how much liquid to drink eachday and which liquids are best for you. Your provider may recommend that you drink an oral rehydration solution (ORS). ORS contains water, salts, and sugar that are needed to replace the lost body fluids. Ask what kind of ORS to use, how much to drink, and where to get it. ?? Eat smaller meals, more often. Eat small amounts of food every 2 to 3 hours, even if you are nothungry. Food in your stomach may decrease your nausea. ?? Talk to your healthcare provider before you take gkag-jim-qmytfco (OTC) medicines. These medicines can cause serious problems if you use certain other medicines, or you have a medical condition. You may have problems if you use too much or use them for longer than the label says. Follow directions on the label carefully. Follow up with your healthcare provider as directed: Write down your questions so you remember to ask them during your follow-up visits. ?? Copyright [employer] 2019 Information is for End User's use only and may not be sold, redistributed or otherwise used for commercial purposes. All illustrations and images included in CareNotes?? are the copyrighted property of [employer] or [employer] The above information is an personal care aid only. It is not intended as medical advice for individual conditions or treatments. Talk to your doctor, nurse or pharmacist before following any medical regimen to see if it is safe and effective for you. documented in this encounter Medications at Time of Discharge Medication Sig Dispensed Refills Start Date End Date ondansetron, disintegrating, (ZOFRAN ODT) 8 MG tablet Take 1 tablet by mouth every 6 hours as needed for Nausea/Vomiting Allow tablet to dissolve on the tongue 10 tablet 10/01/2018 documented as of this encounter ED Notes * Asha Xavier RN - 10/01/2018 11:19 PM CDT Patient D/C home in stable condition with medication script and instructions given, patient verbalizes understanding and denies questions, needs, or pain, respirations even and unlabored, skin warm,dry, and pink, A/Ox4, gait steady * Gene Bledsoe DO - 10/01/2018 9:31 PM CDT Provider contact with the patient: 10/01/2018 21:31 Gregory Roman [id number] [facility] EMERGENCY DEPARTMENT History Chief Complaint Patient presents with ??? Vomiting HPI Comments: 9:31 PM Gregory Roman, a 57 year old male presents to the ER c/o nausea/vomiting onset today. Pt states he thinks he has food poisoning. Pt states he thinks he is dehydrated and states he has been vomiting frequently and is still very nauseated. Pt is not c/o any pain at this time. Pt denies seeing a shoe treer or having any cardiac Hx. PCP: No primary care provider on file. No past medical history on file. No past surgical history on file. No family history on file. Social History Social History ??? Marital status: Spouse name: N/A ??? Number of children: N/A ??? Years of education: N/A Occupational History ??? Not on file. Social History Main Topics ??? Smoking status: Never Smoker ??? Smokeless tobacco: Never Used ??? Alcohol use Yes ??? Drug use: No ??? Sexual activity: Not on file Other Topics Concern ??? Not on file Social History Narrative ??? No narrative on file Review of Systems Review of Systems Constitutional: Negative for chills and fever. HENT: Negative for congestion. Respiratory: Negative. Cardiovascular: Negative. Negative for chest pain, palpitations and leg swelling. Gastrointestinal: Positive for nausea and vomiting. Negative for abdominal pain, blood in stool, constipation, diarrhea and melena. Genitourinary: Negative. Musculoskeletal: Negative. Skin: Negative for itching and rash. Neurological: Negative for dizziness, tingling, sensory change, speech change, focal weakness, lossof consciousness, weakness and headaches. All other systems reviewed and are negative. Physical Exam BP 154/99 Pulse 84 Temp 97.7 ??F (36.5 ??C) Resp 20 Ht 1.829 m (6') Wt 97.9 kg (215 lb 13.3 oz) SpO2 90% BMI 29.27 kg/m2 Physical Exam Constitutional: He is oriented to person, place, and time. He appears well- developed and well-nourished. HENT: Head: Normocephalic and atraumatic. Right Ear: Tympanic membrane normal. Left Ear: Tympanic membrane normal. Nose: Nose normal. Mouth/Throat: Oropharynx is clear and moist. Eyes: Pupils are equal, round, and reactive to light. Conjunctivae and EOM are normal. Neck: Normal range of motion. Neck supple. Cardiovascular: Normal rate, regular rhythm, normal heart sounds and intact distal pulses. Pulmonary/Chest: Effort normal and breath sounds normal. No respiratory distress. He has no wheezes. He has no rales. He exhibits no tenderness. Abdominal: Soft. Bowel sounds are normal. He exhibits no distension. There is no tenderness. There is no rebound and no guarding. Musculoskeletal: Normal range of motion. Neurological: He is alert and oriented to person, place, and time. GCS eye subscore is 4. GCS verbal subscore is 5. GCS motor subscore is 6. Skin: Skin is warm and dry. Psychiatric: He has a normal mood and affect. Nursing note and vitals reviewed. Medications Current Outpatient Prescriptions Medication Sig Dispense Refill ??? ondansetron, disintegrating, (ZOFRAN ODT) 8 MG tablet Take 1 tablet by mouth every 6 hours as needed for Nausea/Vomiting Allow tablet to dissolve on the tongue 10 tablet 0 Procedures Procedures ECG Interpretation Date/Time: 10/01/2018 9:34 PM Interpreted by ED provider Comparison: not compared with previous ECG Rhythm: sinus rhythm Ectopy: none Rate: normal BPM: 90 QRS axis: normal Other: no other findings Clinical impression: normal ECG ECG Rhythm Interpretation Lab Interpretation Oxygen Saturation Interpretation The oxygen saturation level is: 99%. The patient was on Room Air for the saturation measurement. Measurement frequency: Spot Check. Oxygen saturation interpretation is Normal. Intervention(s) used: None. Hospital Encounter on 10/01/18 CBC W AUTO DIFFERENTIAL Result Value Ref Range WBC 15.6 (H) 4.0 - 10.0 x10E9/L RBC 5.71 4.40 - 6.10 x10E12/L Hemoglobin 16.8 13.7 - 17.5 gm/dL Hematocrit 48.2 40.1 - 51.0 % MCV 84.4 78.0 - 100.0 fl MCH 29.4 25.6 - 34.0 pg MCHC 34.9 32.3 - 36.5 gm/dL RDW 12.7 11.6 - 14.4 % MPV 11.8 9.4 - 12.4 fl Platelet Count 195 163 - 369 x10E9/L nRBC Auto 0 <=0 /100 WBC nRBC Absolute 0.00 <=0 x10E9/L COMPREHENSIVE METABOLIC PANEL Result Value Ref Range Glucose 114 70 - 125 mg/dL Sodium 141 136 - 145 mmol/L Potassium 4.2 3.4 - 4.5 mmol/L Chloride 107 98 - 107 mmol/L CO2 24 22 - 29 mmol/L Calcium 10.25 (H) 8.4 - 10.2 mg/dL Anion Gap 14 10 - 20 mmol/L BUN 18.3 8.4 - 25.7 mg/dL Creatinine 1.18 0.72 - 1.25 mg/dL eGFR by MDRD >60 >60 mL/min/1.73m2 eGFR by MDRD >60 >60 mL/min/1.73m2 Alkaline Phosphatase 90 40 - 150 U/L ALT 21 5 - 55 U/L AST 21 5 - 34 U/L Protein Total 7.5 6.4 - 8.3 gm/dL Albumin 4.5 3.5 - 5.0 gm/dL Globulin Total 3.0 2.6 - 4.0 gm/dL Albumin/Globulin Ratio 1.5 0.9 - 1.6 Bilirubin Total 0.9 0.2 - 1.2 mg/dL LIPASE BLOOD Result Value Ref Range Lipase 21 8 - 78 U/L TROPONIN I Result Value Ref Range Troponin I <0.012 <=0.049 ng/mL MAGNESIUM BLOOD Result Value Ref Range Magnesium 2.0 1.6 - 2.6 mg/dL CK BLOOD Result Value Ref Range CK 117 30 - 200 U/L DIFFERENTIAL MANUAL Result Value Ref Range WBC Auto 15.6 (H) 4.0 - 10.0 x10E9/L Neutrophils % Manual 88 (H) 40 - 75 % Band % Manual 2 0 - 6 % Lymphocytes % Manual 3 (L) 19 - 53 % Monocytes % Manual 6 5 - 13 % Eosinophils % Manual 1 1 - 7 % Neutrophils Absolute Manual 13.7 (H) 1.6 - 6.1 x10E3/uL Absolute Bands Manual 0.3 0.0 - 1.0 x10E3/uL Lymphocytes Absolute Manual 0.5 (L) 1.2 - 3.7 x10E3/uL Monocytes Absolute Manual 0.9 0.2 - 0.9 x10E3/uL Eosinophils Absolute Manual 0.2 0.0 - 0.5 x10E3/uL Neutro All ABS Calc 14.0 (H) 1.4 - 6.5 x10E3/uL Cells Counted 100 # cells Platelet Estimation Adequate platelets Normal, Adequate platelets RBC Morphology Normal WBC Morph Normal No orders to display Progress Notes 2131 Pt is evaluated at this time. Plan to obtain results from EKG and labs. Pt will be given Zofran injection 8 mg and 0.9% NaCl IV bolus, see med list below. 2310 Pt's labs are reviewed showing an elevated WBC count but otherwise no acute abnormalities, seereport above. Pt is reevaluated and updated on results. Pt states he feels better and wants to go home. Pt is medically stable and ready for discharge. Pt will be Rx Zofran. I have reviewed the patient's medical history, problem list, home medications, and allergies. ED Course ED Course Medical Decision Making I have reviewed the: Nursing Notes, Vitals. I have interpreted the following results: Labs, 12 Lead EKG, Oxygen Saturation. Orders Placed This Encounter ??? URINALYSIS REFLEX MICROSCOPIC REFLEX CULTURE ??? CBC W AUTO DIFFERENTIAL ??? COMPREHENSIVE METABOLIC PANEL ??? LIPASE BLOOD ??? TROPONIN I ??? MAGNESIUM BLOOD ??? CK BLOOD ??? DIFFERENTIAL MANUAL ??? EKG 12-LEAD ??? 0.9% NaCl IV Bolus ??? ondansetron (ZOFRAN) injection 8 mg ??? DISCONTD: 0.9% NaCl IV Bolus ??? ondansetron, disintegrating, (ZOFRAN ODT) 8 MG tablet Diagnosis: Final diagnoses: Nausea and vomiting, intractability of vomiting not specified, unspecified vomiting type New Medications: New Prescriptions ONDANSETRON, DISINTEGRATING, (ZOFRAN ODT) 8 MG TABLET Take 1 tablet by mouth every 6 hours as needed for Nausea/Vomiting Allow tablet to dissolve on the tongue I have advised the patient to follow-up with: [address] [phone] In 2 days Disposition: Discharged By signing my name below, I, Radha Laura, attest that this documentation has been prepared under the direction and in the presence of Jaime Bledsoe DO. Electronically signed: Sofi Parker. 10/01/2018. 11:13 PM I, Dr. Bledsoe, personally performed the services described in this documentation. All medical record entries made by the beulahibe were at my direction and in my presence. I have reviewed the chart and agree that the record reflects my personal performance and is accurate and complete. Gene Bledsoe DO. 10/01/2018. 11:13 PM Follow-up Information Follow-up With Details Why Contact Info [facility] In [address] [place] [phone] User Date/Time Gene Bledsoe DO SatOct 01, 2018 11:11 PM * Kina Guzman RN - 10/01/2018 8:48 PM CDT Patient reports that he believes that he has food poisoning. He states that he is extremely nauseated and believes that he is dehydrated. documented in this encounter Plan of Treatment Not on file documented as of this encounter Procedures Procedure Name Priority Date/Time Associated Diagnosis Comments TROPONIN I STAT 10/01/2018 9:41 PM CDT DIFFERENTIAL MANUAL Routine 10/01/2018 9 :41 PM CDT CBC W AUTO DIFFERENTIAL STAT 10/01/2018 9:41 PM CDT COMPREHENSIVE METABOLIC PANEL STAT 10/01/2018 9:41 PM CDT MAGNESIUM BLOOD STAT 10/01/2018 9:41 PM CDT LIPASE BLOOD STAT 10/01/2018 9:41 PM CDT CK BLOOD STAT 10/01/2018 9:41 PM CDT EKG 12-LEAD STAT 10/01/2018 9:34 PM CDT Nausea and vomiting, intractability of vomiting not specified, unspecified vomiting type documented in this encounter Results * (ABNORMAL) DIFFERENTIAL MANUAL (10/01/2018 9:41 PM CDT) WBC Auto 15.6(H) 4.0 - 10.0 x10E9/L 10/01/2018 10:48 PM CDT [facility] Neutrophils % Manual 88(H) 40 - 75 % 10/01/2018 10:48 PM CDT [facility] Band % Manual 2 0 - 6 % 10/01/2018 10:48 PM CDT [facility] Lymphocytes % Manual 3(L) 19 - 53 % 10/01/2018 10:48 PM CDT [facility] Monocytes % Manual 6 5 - 13 % 10/01/2018 10:48 PM CDT [facility] Eosinophils % Manual 1 1 - 7 % 10/01/2018 10:48 PM CDT [facility] Neutrophils Absolute Manual 13.7(H) 1.6 - 6.1 x10E3/uL 10/01/2018 10:48 PM CDT [facility] Absolute Bands Manual 0.3 0.0 - 1.0 x10E3/uL 10/01/2018 10:48 PM CDT [facility] Lymphocytes Absolute Manual 0.5(L) 1.2 - 3.7 x10E3/uL 10/01/2018 10:48 PM CDT [facility] Monocytes Absolute Manual 0.9 0.2 - 0.9 x10E3/uL 10/01/2018 10:48 PM CDT [facility] Eosinophils Absolute Manual 0.2 0.0 - 0.5 x10E3/uL 10/01/2018 10:48 PM CDT [facility] Neutro All ABS Calc 14.0(H) 1.4 - 6.5 x10E3/uL 10/01/2018 10:48 PM CDT [facility] Cells Counted 100 # cells 10/01/2018 10:48 PM CDT [facility] Platelet Estimation Adequate platelets Normal, Adequate platelets 10/01/2018 10:48 PM CDT [facility] RBC Morphology Normal 10/01/2018 10:48 PM CDT [facility] WBC Morph Normal 10/01/2018 10:48 PM CDT [facility] Blood BLOOD SPECIMEN / Unknown Venipuncture / Unknown 10/01/2018 9:41 PM CDT 10/01/2018 9:45 PM CDT Gene Bledsoe DO LAB - HEMATOLOGY OR DERABLES [facility] [address] * CK BLOOD (10/01/2018 9:41 PM CDT) CK 117 30 - 200 U/L 10/01/2018 10:14 PM CDT [facility] Blood BLOOD SPECIMEN / Unknown Venipuncture / Unknown 10/01/2018 9:41 PM CDT 10/01/2018 9:45 PM CDT Gene Bledsoe DO LAB - CHEMISTRY ORD ERABLES Performing Organization Address [facility] Co de Phone Number [facility] [address] * MAGNESIUM BLOOD (10/01/2018 9:41 PM CDT) Magnesium 2.0 1.6 - 2.6 mg/dL 10/01/2018 10:14 PM CDT [facility] Blood BLOOD SPECIMEN / Unknown Venipuncture / Unknown 10/01/2018 9:41 PM CDT 10/01/2018 9:45 PM CDT Gene Bledsoe DO LAB - CHEMISTRY ORD ERABLES Performing Organization Address [facility]/ZIP Co de Phone Number [facility] [address] * TROPONIN I (10/01/2018 9:41 PM CDT) [facility] Troponin I <0.012 <=0.049 ng/mL 10/01/2018 10:21 PM CDT [facility] Blood BLOOD SPECIMEN / Unknown Venipuncture / Unknown 10/01/2018 9:41 PM CDT 10/01/2018 9:45 PM CDT Narrative [facility] - 10/01/2018 10:21 PM CDT Note: Diagnosis of myocardial infarction requires symptoms of ischemia or EKG changes of ischemia and Troponin I >99th percentile of normal with <10% coefficient of variation (CV) (0.05 ng/mL) Troponin should be drawn on initial assessment and 3-6 hours later as clinically indicated. Any condition resulting in myocardial cell damage can increase cardiac troponin levels. In addition to myocardial infarction, these include but are not limited to congestive heart failure, arrhythmia, myocarditis, and non-cardiac related causes such as pulmonary embolism, renal failure and sepsis. Gene Bledsoe LAB - CHEMISTRY ORD ERABLES Performing Organization Address City/[facility]/ZIP Co de Phone Number [facility] [address] * LIPASE BLOOD (10/01/2018 9:41 PM CDT) [facility] Lipase 21 8 - 78 U/L 10/01/2018 10:14 PM CDT [facility] Blood BLOOD SPECIMEN / Unknown Venipuncture / Unknown 10/01/2018 9:41 PM CDT 10/01/2018 9:45 PM CDT [facility]D ERABLES Performing Organization Address [facility] Co de Phone Number [facility] [address] * (ABNORMAL) COMPREHENSIVE METABOLIC PANEL (10/01/2018 9:41 PM CDT) [facility] Glucose 114 70 - 125 mg/dL 10/01/2018 10:13 PM CDT [facility] Sodium 141 136 - 145 mmol/L 10/01/2018 10:13 PM CDT [facility] Potassium 4.2 3.4 - 4.5 mmol/L 10/01/2018 10:13 PM CDT [facility] Chloride 107 98 - 107 mmol/L 10/01/2018 10:13 PM CDT [facility] CO2 24 22 - 29 mmol/L 10/01/2018 10:13 PM CDT [facility] Calcium 10.25(H) 8.4 - 10.2 mg/dL 10/01/2018 10:13 PM T [facility] Anion Gap 14 10 - 20 mmol/L 10/01/2018 10:13 PM CDT [facility] BUN 18.3 8.4 - 25.7 mg/dL 10/01/2018 10:13 PM T [facility] Creatinine 1.18 0.72 - 1.25 mg/dL 10/01/2018 10:13 PM T [facility] eGFR by MDRD >60 >60 mL/min/1. 73m2 10/01/2018 10:13 PM T [facility] eGFR by MDRD >60 >60 mL/min/1. 73m2 10/01/2018 10:13 PM T [facility] Alkaline Phosphatase 90 40 - 150 U/L 10/01/2018 10:13 PM CDT [facility] ALT 21 5 - 55 U/L 10/01/2018 10:13 PM T [facility] AST 21 5 - 34 U/L 10/01/2018 10:13 PM T [facility] Protein Total 7.5 6.4 - 8.3 gm/dL 10/01/2018 10:13 PM T [facility] Albumin 4.5 3.5 - 5.0 gm/dL 10/01/2018 10:13 PM T [facility] Globulin Total 3.0 2.6 - 4.0 gm/dL 10/01/2018 10:13 PM [facility] Albumin/Globulin Ratio 1.5 0.9 - 1.6 10/01/2018 10:13 PM [facility] Bilirubin Total 0.9 0.2 - 1.2 mg/dL 10/01/2018 10:13 PM [facility] Blood BLOOD SPECIMEN / Unknown Venipuncture / Unknown 10/01/2018 9:41 PM CDT 10/01/2018 9:45 PM CDT Gene Imran Ladi DO LAB - CHEMISTRY ORD ERABLES [facility] [address] [place] [address], [facility] * (ABNORMAL) CBC W AUTO DIFFERENTIAL (10/01/2018 9:41 PM CDT) WBC 15.6(H) 4.0 - 10.0 x10E9/L 10/01/2018 9:52 PM CDT [facility] RBC 5.71 4.40 - 6.10 x10E12/L 10/01/2018 9:52 PM CDT [facility] Hemoglobin 16.8 13.7 - 17.5 gm/dL 10/01/2018 9:52 PM CDT [facility] Hematocrit 48.2 40.1 - 51.0 % 10/01/2018 9:52 PM CDT [facility] MCV 84.4 78.0 - 100.0 fl 10/01/2018 9:52 PM CDT [facility] MCH 29.4 25.6 - 34.0 pg 10/01/2018 9:52 PM CDT [facility] MCHC 34.9 32.3 - 36.5 gm/dL 10/01/2018 9:52 PM CDT [facility] RDW 12.7 11.6 - 14.4 % 10/01/2018 9:52 PM CDT [facility] MPV 11.8 9.4 - 12.4 fl 10/01/2018 9:52 PM CDT [facility] Platelet Count 195 163 - 369 x10E9/L 10/01/2018 9:52 PM CDT [facility] nRBC Auto 0 <=0 /100 WBC 10/01/2018 9:52 PM CDT [facility] nRBC Absolute 0.00 <=0 x10E9/L 10/01/2018 9:52 PM CDT [facility] Blood BLOOD SPECIMEN / Unknown Venipuncture / Unknown 10/01/2018 9:41 PM CDT 10/01/2018 9:45 PM CDT Gene Bledsoe DO LAB - HEMATOLOGY OR DERABLES [facility] [address] [place] [address], [facility] * EKG 12-LEAD (10/01/2018 9:34 PM CDT) Ventricular Rate 90 BPM [facility] Atrial Rate 90 BPM [facility] P-R Interval 168 ms [facility] QRS Duration ms 96 ms [facility] Q-T Interval ms 370 ms [facility] QTC Calculation (Bezet) 452 ms [facility] Calculated P [place] 46 degrees [facility] Calculated R [place] 4 degrees [facility] Calculated T [place] 24 degrees [facility] Interpretation EKG Normal sinus rhythm Nonspecific ST and T wave abnormality , Inferolateral leads No previous ECGs available Confirmed by MD FARZANA, [facility] ([id number] on 10/01/2018 9:49:48 PM [facility] 10/01/2018 9:34 PM CDT 10/01/2018 9:49 PM CDT Gene Bledsoe DO ECG ORDERABLES [facility] documented in this encounter Visit Diagnoses Diagnosis Nausea and vomiting, intractability of vomiting not specified, unspecified vomiting type documented in this encounter Administered Medications Inactive Administered Medications - up to 3 most recent administrations Medication Order MAR Action Action Date Dose Rate Site 0.9% NaCl IV Bolus 1,000 mL, at 983.61 mL/hr, Administer over 61 Minutes, ONCE, 1 dose, On Sat10/01/18 at 2145 Current Rate 10/01/2018 9:47 PM CDT 983.61 mL/hr $ New Bag/Syringe 10/01/2018 9:46 PM CDT 1,000 mL 983.61 mL/hr ondansetron (ZOFRAN) injection 8 mg 8 mg, Intravenous, ONCE, 1 dose, On Sat10/01/18 at 2145 $ Given 10/01/2018 9:47 PM CDT 8 mg documented in this encounter Active and Recently Administered Medications Times are shown in CDT. Scheduled Medication Order 09/29/2018 09/30/2018 10/01/2018 0.9% NaCl IV Bolus (COMPLETED) 1,000 mL, at 983.61 mL/hr, Administer over 61 Minutes, ONCE, 1 dose, On Sat10/01/18 at 1688 [id number] ($ New Bag/Syri nge - Provider: Asha Xavier RN)[id number] (Current Rate - Provider: Asha Xavier RN)2306 (Stopped - Provider: Asha Xavier RN) ondansetron (ZOFRAN) injection 8 mg (COMPLETED) 8 mg, Intravenous, ONCE, 1 dose, On Sat10/01/18 at [id number] ($ Given - Prov ider: Asha Xavier RN) documented in this encounter
--- OUTSIDE RECORDS SUMMARY | 2024-03-23 11:18 | XMS_ITS | Referral Summary ---
Author Organization [facility] [employer] Address [address] [place] [address] Care Team Providers Care Drafting Layout Worker Name Role Phone Unavailable Primary Care Provider Unavailabl e Source Comments [facility] [employer],non-owned Affiliates and Associated Physician Practices is amultiple site organization consisting of ambulatory clinics and hospital sitesin [place], [place], [place] and [place]. This disclosure is being madepursuant to the Care Everywhere program and may not contain all information available regarding this patient. Last updated 17.[facility] [employer] Allergies No known active allergies Medications * [...] 10/01/2018 8:37 PM CDT Plan of Treatment Not on file
--- OUTSIDE RECORDS SUMMARY | 2024-03-23 11:18 | XMS_ITS | Continuity of Care Document ---
Author Name Rowan Encinas [facility] Address [address] [place], [place] [id number] [place] [address] Organization Unknown Address [address] [place], [place] [address] [place] [address] Medications No known medications Problems No known problems
--- OUTSIDE RECORDS SUMMARY | 2024-03-23 11:18 | XMS_ITS | Patient Health Summary ---
Author Organization [facility] [employer] Address [address] [place] [address] Care Team Providers Care Supervisor Packing Room Name Role Phone Unavailable Primary Care Provider Unavailabl e Note from [facility],non-owned Affiliates and Associated Physician Practices is amultiple site organization consisting of ambulatory clinics and hospital sitesin [place], [place], [place] and [place]. This disclosure is being madepursuant to the Care Everywhere program and may not contain all information available regarding this patient. Last updated 17.[facility] Allergies No known active allergies Medications * Be aware that medications may not be up to date on this document. Alwaysverify current medications with the patient. * ondansetron, disintegrating, (ZOFRAN ODT) 8 MG tablet(Started 10/01/2018) Take 1 tablet by mouth every 6 hours as needed for Nausea/Vomiting Allow tablet to dissolve on the tongue Social History Tobacco Use Types Packs/Day Years [...] Mass Index 29.27 10/01/2018 8:37 PM CDT Procedures * DIFFERENTIAL MANUAL(Performed 10/01/2018) * CK BLOOD(Performed 10/01/2018) * MAGNESIUM BLOOD(Performed 10/01/2018) * TROPONIN I(Performed 10/01/2018) * LIPASE BLOOD(Performed 10/01/2018) * COMPREHENSIVE METABOLIC PANEL(Performed 10/01/2018) * CBC W AUTO DIFFERENTIAL(Performed 10/01/2018) * EKG 12-LEAD(Performed 10/01/2018) Performed for Nausea and vomiting, intractability of vomiting not specified, unspecified vomiting type Results * TROPONIN I (10/01/2018 9:41 PM CDT) [facility] Troponin I <0.012 <=0.049 ng/mL 10/01/2018 10:21 PM CDT [facility] Blood BLOOD SPECIMEN / Unknown Venipuncture / Unknown 10/01/2018 9:41 PM CDT 10/01/2018 9:45 PM CDT Narrative [facility] - 10/01/2018 10:21 PM [...] embolism, renal failure and sepsis. Gene Bledsoe DO LAB - CHEMISTRY ORD ERABLES [facility] [address] [place], [place] [address] * (ABNORMAL) DIFFERENTIAL MANUAL (10/01/2018 9:41 PM CDT) Pathologist [facility] WBC Auto 15.6(H) 4.0 - 10.0 x10E9/L 10/01/2018 10:48 PM CDT [facility] Neutrophils % Manual 88(H) 40 - 75 % 10/01/2018 10:48 PM CDT [facility] Band % Manual 2 0 - 6 % 10/01/2018 10:48 PM CDT [facility] Lymphocytes % Manual 3(L) 19 - 53 % 10/01/2018 10:48 PM CDT [facility] Monocytes % Manual 6 5 - 13 % 10/01/2018 10:48 PM CDT [facility] Eosinophils % Manual 1 1 - 7 % 10/01/2018 10:48 PM CDT [facility] Neutrophils Absolute Manual 13.7(H) 1.6 - 6.1 x10E3/uL 10/01/2018 10:48 PM CDT [facility] Absolute Bands Manual 0.3 0.0 - 1.0 x10E3/uL 10/01/2018 10:48 PM CDT [facility] Lymphocytes Absolute Manual 0.5(L) 1.2 - 3.7 x10E3/uL 10/01/2018 10:48 PM CDT [facility] Monocytes Absolute Manual 0.9 0.2 - 0.9 x10E3/uL 10/01/2018 10:48 PM CDT [facility] Eosinophils Absolute Manual 0.2 0.0 - 0.5 x10E3/uL 10/01/2018 10:48 PM CDT [facility] Neutro All ABS Calc 14.0(H) 1.4 - 6.5 x10E3/uL 10/01/2018 10:48 PM CDT [facility] Cells Counted 100 # cells 10/01/2018 10:48 PM CDT [facility] Platelet Estimation Adequate platelets Normal, Adequate platelets 10/01/2018 10:48 PM CDT [facility] RBC Morphology Normal 10/01/2018 10:48 PM CDT [facility] WBC Morph Normal 10/01/2018 10:48 PM CDT [facility] Blood BLOOD SPECIMEN / Unknown Venipuncture / Unknown 10/01/2018 9:41 PM CDT 10/01/2018 9:45 PM CDT Gene Bledsoe DO LAB - HEMATOLOGY OR DERABLES [facility] [address] [place] [address], [facility] * (ABNORMAL) CBC W AUTO DIFFERENTIAL (10/01/2018 9:41 PM CDT) WBC 15.6(H) 4.0 - 10.0 x10E9/L 10/01/2018 9:52 PM CDT [facility] RBC 5.71 4.40 - 6.10 x10E12/L 10/01/2018 9:52 PM CDT [facility] Hemoglobin 16.8 13.7 - 17.5 gm/dL 10/01/2018 9:52 PM CDT [facility] Hematocrit 48.2 40.1 - 51.0 % 10/01/2018 9:52 PM CDT [facility] MCV 84.4 78.0 - 100.0 fl 10/01/2018 9:52 PM CDT [facility] MCH 29.4 25.6 - 34.0 pg 10/01/2018 9:52 PM CDT [facility] MCHC 34.9 32.3 - 36.5 gm/dL 10/01/2018 9:52 PM CDT [facility] RDW 12.7 11.6 - 14.4 % 10/01/2018 9:52 PM CDT [facility] MPV 11.8 9.4 - 12.4 fl 10/01/2018 9:52 PM CDT [facility] Platelet Count 195 163 - 369 x10E9/L 10/01/2018 9:52 PM CDT [facility] nRBC Auto 0 <=0 /100 WBC 10/01/2018 9:52 PM CDT [facility] nRBC Absolute 0.00 <=0 x10E9/L 10/01/2018 9:52 PM CDT [facility] Blood BLOOD SPECIMEN / Unknown Venipuncture / Unknown 10/01/2018 9:41 PM CDT 10/01/2018 9:45 PM CDT Gene Bledsoe DO LAB - HEMATOLOGY OR DERABLES [facility] [address] [place] [address], [facility] * (ABNORMAL) COMPREHENSIVE METABOLIC PANEL (10/01/2018 9:41 PM CDT) Glucose 114 70 - 125 mg/dL 10/01/2018 10:13 PM CDT [facility] Sodium 141 136 - 145 mmol/L 10/01/2018 10:13 PM T [facility] Potassium 4.2 3.4 - 4.5 mmol/L 10/01/2018 10:13 PM [facility] Chloride 107 98 - 107 mmol/L 10/01/2018 10:13 PM [facility] CO2 24 22 - 29 mmol/L 10/01/2018 10:13 PM [facility] Calcium 10.25(H) 8.4 - 10.2 mg/dL 10/01/2018 10:13 PM [facility] Anion Gap 14 10 - 20 mmol/L 10/01/2018 10:13 PM [facility] BUN 18.3 8.4 - 25.7 mg/dL 10/01/2018 10:13 PM [facility] Creatinine 1.18 0.72 - 1.25 mg/dL 10/01/2018 10:13 PM [facility] eGFR by MDRD >60 >60 mL/min/1. 73m2 10/01/2018 10:13 PM [facility] eGFR by MDRD >60 >60 mL/min/1. 73m2 10/01/2018 10:13 PM [facility] Alkaline Phosphatase 90 40 - 150 U/L 10/01/2018 10:13 PM [facility] ALT 21 5 - 55 U/L 10/01/2018 10:13 PM [facility] AST 21 5 - 34 U/L 10/01/2018 10:13 PM [facility] Protein Total 7.5 6.4 - 8.3 gm/dL 10/01/2018 10:13 PM [facility] Albumin 4.5 3.5 - 5.0 gm/dL 10/01/2018 10:13 PM [facility] Globulin Total 3.0 2.6 - 4.0 gm/dL 10/01/2018 10:13 PM [facility] Albumin/Globulin Ratio 1.5 0.9 - 1.6 10/01/2018 10:13 PM [facility] Bilirubin Total 0.9 0.2 - 1.2 mg/dL 10/01/2018 10:13 PM [facility] Blood BLOOD SPECIMEN / Unknown Venipuncture / Unknown 10/01/2018 9:41 PM CDT 10/01/2018 9:45 PM CDT Gene Jordyn Bledsoe DO LAB - CHEMISTRY ORD ERABLES Performing Organization Address City/[facility] Co de Phone Number [facility] [address] * MAGNESIUM BLOOD (10/01/2018 9:41 PM CDT) Magnesium 2.0 1.6 - 2.6 mg/dL 10/01/2018 10:14 PM CDT [facility] Blood BLOOD SPECIMEN / Unknown Venipuncture / Unknown 10/01/2018 9:41 PM CDT 10/01/2018 9:45 PM CDT Gene Matildarichard Ladi LAB - CHEMISTRY ORD ERABLES Performing Organization Address [facility] Co de Phone Number [facility] [address] * LIPASE BLOOD (10/01/2018 9:41 PM CDT) Lipase 21 8 - 78 U/L 10/01/2018 10:14 PM CDT [facility] Blood BLOOD SPECIMEN / Unknown Venipuncture / Unknown 10/01/2018 9:41 PM CDT 10/01/2018 9:45 PM CDT Gene Cobb Ladi LAB - CHEMISTRY ORD ERABLES Performing Organization Address City/[facility] Co de Phone Number [facility] [address] * CK BLOOD (10/01/2018 9:41 PM CDT) CK 117 30 - 200 U/L 10/01/2018 10:14 PM CDT [facility] Blood BLOOD SPECIMEN / Unknown Venipuncture / Unknown 10/01/2018 9:41 PM CDT 10/01/2018 9:45 PM CDT Genesole Bledsoe DO LAB - CHEMISTRY ORD ERABLES Performing Organization Address City/[facility]/ZIP Co de Phone Number [facility] [address] [place] [address], [facility] * EKG 12-LEAD (10/01/2018 9:34 PM CDT) Ventricular Rate 90 BPM [facility] Atrial Rate 90 BPM [facility] P-R Interval 168 ms [facility] QRS Duration ms 96 ms [facility] Q-T Interval ms 370 ms [facility] QTC Calculation (Bezet) 452 ms [facility] Calculated P [place] 46 degrees [facility] Calculated R [place] 4 degrees [facility] Calculated T [place] 24 degrees [facility] Interpretation EKG Normal sinus rhythm Nonspecific ST and T wave abnormality , Inferolateral leads No previous ECGs available Confirmed by MD FARZANA, [facility] ([id number]) on 10/01/2018 9:49:48 PM [facility] 10/01/2018 9:34 PM CDT 10/01/2018 9:49 PM CDT Gene Bledsoe DO ECG ORDERABLES Performing Organization Address [facility]/ZIP Co de Phone Number [facility]
--- OUTSIDE RECORDS SUMMARY | 2024-03-23 11:18 | XMS_ITS | Encounter Summary ---
Author Organization [facility] Address [address] [place] [place] [address] [place] [address] Care Team Providers Care Band Tier Name Role Phone Unavailable Primary Care Provider Unavailabl e Encounter Details Date Type Department Care Team (Latest Contact Info) Description 10/23/2012 Abstract [facility] Ian Gutierrez MD [address] [place] [address] Social History Tobacco Use Types Packs/Day Years [...] Mass Index 30.08 10/23/2012 3:06 PM CDT documented in this encounter Progress Notes * Ian Gutierrez MD - 10/23/2012 3:00 PM CDT Reason For Visit Reason For Visit: Other: Physical Chief Complaint Physical for drag racing History of Present Illness HM, Adult Male: The patient is being seen for a health maintenance evaluation. The last health maintenance visit was 1 year(s) ago. General Health: The patient's health since the last visit is described as good. He has hearing loss. Immunizations status: up to date. Lifestyle:. He consumes a diverse and healthy diet. He does not have any weight concerns. He exercises regularly. He does not use tobacco. He consumes alcohol. He denies drug use. Screening: Cancer screening reviewed and updated. Prostate cancer screening includes no previous prostate-specific antigen testing and Possible family history prostate ca. Will discuss witih father. Colorectal cancer screening includes no previous screening. Metabolic screening reviewed and updated. Risk screening reviewed and updated. Surgical History ?? 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 Alcohol Use 1 or 2 beers a day ?? Marital History - Currently ?? Tobacco Non-user Allergies 1. No Known Drug Allergies No Known Drug Allergies Vitals [id number] 03:06PM Temperature 98.3 F Heart Rate 74 Systolic 126 Diastolic 76 O2 Saturation 98 BMI Calculated 30.22 BSA Calculated 2.27 Height 6 ft 1 in Weight 228 lb Distance Acuity OD 20/25 Distance Acuity OS 20/20 Physical Exam Constitutional General appearance: No acute distress, well appearing and well nourished. Eyes Conjunctiva and lids: No swelling, erythema, or discharge. Pupils and irises: Equal, round and reactive to light. Ears, Nose, Mouth, and Throat External inspection of ears and nose: Normal. Otoscopic examination: Tympanic membrance translucent with normal light reflex. Canals patent without erythema. Oropharynx: Normal with no erythema, edema, exudate or lesions. Pulmonary Respiratory effort: No increased work of breathing or signs of respiratory distress. Auscultation of lungs: Clear to auscultation. Cardiovascular Auscultation of heart: Normal rate and rhythm, normal S1 and S2, without murmurs. Examination of extremities for edema and/or varicosities: Normal. Abdomen Abdomen: Non-tender, no masses. Liver and spleen: No hepatomegaly or splenomegaly. Lymphatic Palpation of lymph nodes in neck: No lymphadenopathy. Musculoskeletal Gait and station: Normal. Digits and nails: Normal without clubbing or cyanosis. Inspection/palpation of joints, bones, and muscles: Normal. Skin Skin and subcutaneous tissue: Normal without rashes or lesions. Neurologic Cranial nerves: Cranial nerves 2-12 intact. Reflexes: 2+ and symmetric. Psychiatric Orientation to person, place and time: Normal. Mood and affect: Normal. Assessment 1. Health Maintenance V70.0 Plan Health Maintenance (V70.0) ?? We recommend a colonoscopy. Done: [id number] Ordered; For: Health Maintenance (V70.0); Ordered By: Ian Gutierrez ?? Follow-up visit in 6 months Outpatient Follow-up Requested for: [id number] Ordered; For: Health Maintenance (V70.0); Ordered By: Ian Gutierrez Performed: Due: [id number] ?? Colonoscopy ; every 10 years; Next [id number]; Status:Active Colonoscopy ; every 10 years; Next [id number]; Status:Active Discussion/Summary Impression: healthy adult male. Currently, he eats a healthy diet. Prostate cancer screening: the risks and benefits of prostate cancer screening were discussed and To discuss for possible further screening. Colorectal cancer screening: the risks and benefits of colorectal cancer screening were discussed, colonoscopy has been ordered and To be done in winter time. Screening lab work includes recommend screening labs at [facility]. Advice and education were given regarding weight bearing exercise, cardiovascular risk reduction and alcohol use. Patient discussion: discussed with the patient. Patient NHRA form completed. UA negative. FU 6 months for re eval and possible colon screening Signatures Electronically signed by : Ian Gutierrez M.D.; Oct 23 2012 4:18PM (Author) TING SUPERVISOR documented in this encounter Plan of Treatment Not on file documented as of this encounter Visit Diagnoses Not on filedocumented in this encounter
--- OUTSIDE RECORDS SUMMARY | 2024-03-23 11:18 | XMS_ITS | Continuity of Care Document ---
Author Name Rowan Encinas [facility] Address [address] [place] [address] Organization Unknown Address [address] [place] [address] [address] [place] [address] Medications No known medications Problems No known problems
== END 2024-03-20 14:23 | disposition home or self-care (01) ==
LOC: ANHED 05:55 → ANHIMU 03-18 13:12
PROVIDERS: Hospitalist; Internal Medicine; Admitting Provider Internal Medicine; Emergency Provider Emergency Medicine; Visit Provider Internal Medicine
PROC: 4A023N7 Measurement of Cardiac Sampling and Pressure, Left Heart, Percutaneous Approach (ICD-10-PCS; CPT 93452; principal; 2024-03-19 11:30)
PROC: (CPT 92928; 2024-03-19 11:30)
DX: I25.110 Atherosclerotic heart disease of native coronary artery with unstable angina pectoris (principal); I10 Essential (primary) hypertension; Z20.822 Contact with and (suspected) exposure to COVID-19
CPT/HCPCS: 36415; 71046; 78452; 80053; 80061; 83690; 84484; 85025; 85380; 85610; 85730; 87637; 93005; 93017; 93306; 93458; 96374; 96375; 99285; A9270; A9502; C1725; C1769; C1874; C1887; C1894; C8929; C9600; G0378; J1644; J2003; J2250; J2270; J2305; J2405; J2785; J3010; J7030; J7040; Q9957

== ENCOUNTER 2024-04-10 10:43 | Emergency (ER) | payer OTHER, SELFPAY ==
--- OUTSIDE RECORDS SUMMARY | 2024-04-10 10:50 | XMS_ITS | Patient Health Summary ---
Author Organization [facility] [employer] Address [address] [place] [address] Care Team Providers Care Elevator Worker Name Role Phone Unavailable Primary Care Provider Unavailabl e Note from [facility],non-owned Affiliates and Associated Physician Practices is amultiple site organization consisting of ambulatory clinics and hospital sitesin [place], [place], [place] and [place]. This disclosure is being madepursuant to the Care Everywhere program and may not contain all information available regarding this patient. Last updated 17.[facility] Allergies No known active allergies Medications [...] * TROPONIN I (10/01/2018 9:41 PM CDT) [facility] Troponin I <0.012 <=0.049 ng/mL 10/01/2018 10:21 PM CDT [facility] Blood BLOOD SPECIMEN / Unknown Venipuncture / Unknown 10/01/2018 9:41 PM CDT 10/01/2018 9:45 PM CDT Narrative [facility] - 10/01/2018 10:21 PM CDT Note: [...] Bledsoe DO LAB - CHEMISTRY ORD ERABLES [facility] [address] [place], [place] [address] * (ABNORMAL) DIFFERENTIAL MANUAL (10/01/2018 9:41 PM CDT) Pathologist [facility] WBC Auto 15.6(H) 4.0 - 10.0 x10E9/L [...] - 6.5 x10E3/uL 10/01/2018 10:48 PM CDT [facility] Cells Counted 100 # cells 10/01/2018 10:48 PM CDT [facility] Platelet Estimation Adequate platelets Normal, Adequate platelets 10/01/2018 10:48 PM CDT [facility] RBC Morphology Normal 10/01/2018 10:48 PM CDT [facility] WBC Morph Normal 10/01/2018 10:48 PM CDT [facility] Blood BLOOD SPECIMEN / Unknown Venipuncture / Unknown 10/01/2018 9:41 PM CDT 10/01/2018 9:45 PM CDT Gene Bledsoe DO LAB - HEMATOLOGY OR DERABLES [facility] [address] [place] [address], [facility] * (ABNORMAL) CBC W [...] <=0 /100 WBC 10/01/2018 9:52 PM CDT [facility] nRBC Absolute 0.00 <=0 x10E9/L 10/01/2018 9:52 PM CDT [facility] Blood BLOOD SPECIMEN / Unknown Venipuncture / Unknown 10/01/2018 9:41 PM CDT 10/01/2018 9:45 PM CDT Gene Bledsoe DO LAB - HEMATOLOGY OR DERABLES [facility] [address] [place] [address], [facility] * (ABNORMAL) COMPREHENSIVE METABOLIC PANEL (10/01/2018 9:41 PM CDT) Glucose 114 70 - 125 mg/dL 10/01/2018 10:13 PM CDT [facility] Sodium 141 136 - 145 mmol/L 10/01/2018 10:13 PM T [facility] Potassium 4.2 3.4 - 4.5 mmol/L 10/01/2018 10:13 PM [facility] Chloride 107 98 - 107 mmol/L 10/01/2018 10:13 PM [facility] CO2 24 22 - 29 mmol/L 10/01/2018 10:13 PM [facility] Calcium 10.25(H) 8.4 - 10.2 mg/dL 10/01/2018 10:13 PM [facility] Anion Gap 14 10 - 20 mmol/L 10/01/2018 10:13 PM [facility] BUN 18.3 8.4 - 25.7 mg/dL 10/01/2018 10:13 PM [facility] Creatinine 1.18 0.72 - 1.25 mg/dL 10/01/2018 10:13 PM [facility] eGFR by MDRD >60 >60 mL/min/1. 73m2 10/01/2018 10:13 PM [facility] eGFR by MDRD >60 >60 mL/min/1. 73m2 10/01/2018 10:13 PM [facility] Alkaline Phosphatase 90 40 - 150 U/L 10/01/2018 10:13 PM [facility] ALT 21 5 - 55 U/L 10/01/2018 10:13 PM [facility] AST 21 5 - 34 U/L 10/01/2018 10:13 PM [facility] Protein Total 7.5 6.4 - 8.3 gm/dL 10/01/2018 10:13 PM [facility] Albumin 4.5 3.5 - 5.0 gm/dL 10/01/2018 10:13 PM [facility] Globulin Total 3.0 2.6 - 4.0 gm/dL 10/01/2018 10:13 PM [facility] Albumin/Globulin Ratio 1.5 0.9 - 1.6 10/01/2018 10:13 PM [facility] Bilirubin Total 0.9 0.2 - 1.2 mg/dL 10/01/2018 10:13 PM [facility] Blood BLOOD SPECIMEN / Unknown Venipuncture / Unknown 10/01/2018 9:41 PM CDT 10/01/2018 9:45 PM CDT Gene Jordyn Bledsoe DO LAB - CHEMISTRY ORD ERABLES Performing Organization Address City/[facility] Co de Phone Number [facility] [address] * MAGNESIUM BLOOD (10/01/2018 9:41 PM CDT) Magnesium 2.0 1.6 - 2.6 mg/dL 10/01/2018 10:14 PM CDT [facility] Blood BLOOD SPECIMEN / Unknown Venipuncture / Unknown 10/01/2018 9:41 PM CDT 10/01/2018 9:45 PM CDT Gene Matildarichard Ladi LAB - CHEMISTRY ORD ERABLES Performing Organization Address [facility] Co de Phone Number [facility] [address] * LIPASE BLOOD (10/01/2018 9:41 PM CDT) Lipase 21 8 - 78 U/L 10/01/2018 10:14 PM CDT [facility] Blood BLOOD SPECIMEN / Unknown Venipuncture / Unknown 10/01/2018 9:41 PM CDT 10/01/2018 9:45 PM CDT Gene Cobb Ladi LAB - CHEMISTRY ORD ERABLES Performing Organization Address City/[facility] Co de Phone Number [facility] [address] * CK BLOOD (10/01/2018 9:41 PM CDT) CK 117 30 - 200 U/L 10/01/2018 10:14 PM CDT [facility] Blood BLOOD SPECIMEN / Unknown Venipuncture / Unknown 10/01/2018 9:41 PM CDT 10/01/2018 9:45 PM CDT Genesole Bledsoe DO LAB - CHEMISTRY ORD ERABLES Performing Organization Address City/[facility]/ZIP Co de Phone Number [facility] [address] [place] [address], [facility] * EKG 12-LEAD (10/01/2018 9:34 PM CDT) Ventricular Rate 90 BPM [facility] Atrial Rate 90 BPM [facility] P-R Interval 168 ms [facility] QRS Duration ms 96 ms [facility] Q-T Interval ms 370 ms [facility] QTC Calculation (Bezet) 452 ms [facility] Calculated P [place] 46 degrees [facility] Calculated R [place] 4 degrees [facility] Calculated T [place] 24 degrees [facility] Interpretation EKG Normal sinus rhythm Nonspecific ST and T wave abnormality , Inferolateral leads No previous ECGs available Confirmed by MD FARZANA, [facility] ([id number]) on 10/01/2018 9:49:48 PM [facility] 10/01/2018 9:34 PM CDT 10/01/2018 9:49 PM CDT Gene Bledsoe DO ECG ORDERABLES Performing Organization Address [facility]/ZIP Co de Phone Number [facility]
--- OUTSIDE RECORDS SUMMARY | 2024-04-10 10:50 | XMS_ITS | Clinical Summary ---
Author Organization [facility] [employer] Address [address] [place] [address] Care Team Providers Care Gift Manager Name Role Phone Unavailable Primary Care Provider Unavailabl e Source Comments [facility] [employer],non-owned Affiliates and Associated Physician Practices is amultiple site organization consisting of ambulatory clinics and hospital sitesin [place], [place], [place] and [place]. This disclosure is being madepursuant to the Care Everywhere program and may not contain all information available regarding this patient. Last updated 17.[facility] [employer] Allergies No known active allergies Medications * [...] 12/24/1978 DTAP/TDAP/TD VACCINES (1 - Tdap) 12/29/1979 PNEUMOCOCCAL VACCINE 50+ (1 of 1 - PCV) 2010 ZOSTER VACCINE (1 of 2) 2010 COVID-19 [...] patient's age to complete this topic MENINGOCOCCAL (Group B) VACCINE Aged Out No longer eligible based on patient's age to complete this topic MENINGOCOCCAL VACCINE Aged Out No pedro nelia eligible based on patient's age to complete this topic PNEUMOCOCCAL VACCINE Aged Out No long er eligible based on patient's age to complete this topic
--- OUTSIDE RECORDS SUMMARY | 2024-04-10 10:50 | XMS_ITS | Referral Summary ---
Author Organization [facility] [employer] Address [address] [place] [address] Care Team Providers Care Stenographic Court Reporter Name Role Phone Unavailable Primary Care Provider Unavailabl e Source Comments [facility] [employer],non-owned Affiliates and Associated Physician Practices is amultiple site organization consisting of ambulatory clinics and hospital sitesin [place], [place], [place] and [place]. This disclosure is being madepursuant to the Care Everywhere program and may not contain all information available regarding this patient. Last updated 17.[facility] [employer] Allergies No known active allergies Medications * [...]
--- OUTSIDE RECORDS SUMMARY | 2024-04-10 10:50 | XMS_ITS | Clinical Summary ---
Author Organization [facility] Address [address] [place] [address]. [place], [place] [id number] [place] [address] Care Team Providers Care Stereo Equipment Installer Name Role Phone Unavailable Primary Care Provider [...] (1 - 1-dose 75+ series) 12/29/2035 Meningococcal B Vaccine Aged Out No l onger eligible based on patient's age to complete this topic Meningococcal Vaccine Aged Out No pedro nelia [...]
[2024-04-10 11:08] VITALS: BP 177/62; PULSE 68; RESP 14; TEMP 36.4; O2SAT 100
--- NOTE | 2024-04-10 12:44 | ED.WOUNDLAC ---
HPI - Wound/Laceration General Chief Complaint: Wound/Laceration <Deb Carias PA-C - Last Filed: 04/11/24 15:08> Stated Complaint: cut L. wrist, on thinners <Deb Carias PA-C - Last Filed: 04/11/24 15:08> Time Seen by Provider: 04/10/24 12:45 <Deb Carias PA-C - Last Filed: 04/11/24 15:08> Focused HPI: This is a 63-year-old male that presents to the emergency department for laceration to the left wrist. Reports he accidentally cut himself on a piece a stainless steel. He takes clopidogrel. Unable to control bleeding GENERAL: Well-appearing, well-nourished, and in no acute distress. HEAD: Normocephalic, atraumatic. CHEST: Clear to auscultation. ?No respiratory distress. HEART: Regular rate and rhythm.? NEURO: ?Alert and oriented x3. Patient screened in triage and initial orders placed.? ?Additional care and disposition to be based upon?diagnostic testing and treatment. <Deb Carias PA-C - Last Filed: 04/11/24 15:08> History of Present Illness HPI narrative: I agree with the above HPI <Shekhar Waters MD - Last Filed: 04/10/24 22:42> Related Data Allergies/Adverse Reactions: Allergies Allergy/AdvReac Type Severity Reaction Status Date / Time No Known Allergies Allergy Verified 04/10/24 10:46 <Deb Carias PA-C - Last Filed: 04/11/24 15:08> Review of Systems Review of Systems: All systems reviewed & are unremarkable except as noted in HPI and below <Shekhar Waters MD - Last Filed: 04/10/24 22:42> PMFSH Past Medical History Medical History: Medical History (Updated 04/11/24 @ 15:07 by Deb Carias PA-C) History of hyperlipidemia History of hypertension Coronary artery disease <Deb Carias PA-C - Last Filed: 04/11/24 15:08> Social History Social History: Social History Smoking status: Never smoker Alcohol intake: current Drinks per week: 10 Substance use: never Substance use type: does not use Do You Feel Safe in your Home?: Yes Lack of Transportation: No Lack of Food: Never True Current Housing: I Have Housing Concerned About Future Housing: No Difficulty Paying Gas/Electric Bills: No Difficulty Paying for Meds: No Currently Unemployed: No Education: High School Diploma/GED Difficulty w/ Childcare or Family Care: No Spiritual care concerns: No <Deb Carias PA-C - Last Filed: 04/11/24 15:08> Exam Narrative: APPEARANCE: Well appearing, no pain, no distress, well-nourished. HEAD: normocephalic, atraumatic. EYES: PERRLA/EOMI, conjunctivae clear. NOSE: Normal no drainage EARS:TMS clear with good light reflex. THROAT: Pharynx clear, no exudate. NECK: Supple. No adenopathy, no masses. RESPIRATORY: Airway patent, respirations nonlabored. Clear to auscultation bilaterally, no rales, rhonchi, wheezing. CARDIOVASCULAR: Regular rate and rhythm without murmurs rubs or gallops. ABDOMINAL: Soft, nontender, nondistended, normal bowel sounds MUSCULOSKELETAL: Moves all extremities. Strength/ROM intact, No edema, No calf tenderness. NEURO: Alert. Cranial nerves II through XII intact. Good gait. Good coordination SKIN: 3 cm does the dorsum of the left wrist <Shekhar Waters MD - Last Filed: 04/10/24 22:42> Course Vital Signs Vital signs: Vital Signs Temperature 97.6 F 04/10/24 11:08 Pulse Rate 68 04/10/24 11:08 Respiratory Rate 14 04/10/24 11:08 Blood Pressure 177/62 H 04/10/24 11:08 Pulse Oximetry 100 04/10/24 11:08 Temperature 97.6 F 04/10/24 11:08 Pulse Rate 85 04/10/24 14:29 Respiratory Rate 16 04/10/24 14:29 Blood Pressure 177/62 H 04/10/24 11:08 Pulse Oximetry 100 04/10/24 14:29 <Deb Carias PA-C - Last Filed: 04/11/24 15:08> Vital Signs Temperature 97.6 F 04/10/24 11:08 Pulse Rate 68 04/10/24 11:08 Respiratory Rate 14 04/10/24 11:08 Blood Pressure 177/62 H 04/10/24 11:08 Pulse Oximetry 100 04/10/24 11:08 Temperature 97.6 F 04/10/24 11:08 Pulse Rate 85 04/10/24 14:29 Respiratory Rate 16 04/10/24 14:29 Blood Pressure 177/62 H 04/10/24 11:08 Pulse Oximetry 100 04/10/24 14:29 <Shekhar Waters MD - Last Filed: 04/10/24 22:42> Procedures Laceration Laceration 1: Time: 13:37 <Shekhar Waters MD - Last Filed: 04/10/24 22:42> Site: upper extremity <Shekhar Waters MD - Last Filed: 04/10/24 22:42> Side (If applicable): left <Shekhar Waters MD - Last Filed: 04/10/24 22:42> Size (cm): 3 <Shekhar Waters MD - Last Filed: 04/10/24 22:42> Description: linear <Shekhar Waters MD - Last Filed: 04/10/24 22:42> Depth: simple, single layer <Shekhar Waters MD - Last Filed: 04/10/24 22:42> Local Anesthetic: lidocaine 1% and with epi <Shekhar Waters MD - Last Filed: 04/10/24 22:42> Amount of anesthesia used (mL): 3 <Shekhar Waters MD - Last Filed: 04/10/24 22:42> Pre-repair: wound explored and irrigated <Shekhar Waters MD - Last Filed: 04/10/24 22:42> ====== Skin Level ======: Skin layer closed with: prolene <Shekhar Waters MD - Last Filed: 04/10/24 22:42> Size (cm): 5-0 <Shekhar Waters MD - Last Filed: 04/10/24 22:42> Number of sutures: 5 <MD Pilar Ray Last Filed: 04/10/24 22:42> Technique: simple, interrupted <Shekhar Waters MD - Last Filed: 04/10/24 22:42> ====== Subcutaneous Layer ======: ====== Muscle Layer ======: ====== Tendon Layer ======: MDM - Wound/Laceration MDM Narrative Medical decision making narrative: 63-year-old male presents emergency department for evaluation for a laceration to the dorsum of the left wrist. Laceration was repaired as described in the procedure note. <Shekhar Waters MD - Last Filed: 04/10/24 22:42> Differential Diagnosis Differential diagnosis: Likely laceration and avulsion of skin <Shekhar Waters MD - Last Filed: 04/10/24 22:42> Critical Care Time Critical Care Time Critical Care Time: No <Deb Carias PA-C - Last Filed: 04/11/24 15:08> Discharge Plan Discharge Clinical Impression: Laceration <Deb Carias PA-C - Last Filed: 04/11/24 15:08> Patient Disposition: Home, Self-Care <Deb Carias PA-C - Last Filed: 04/11/24 15:08> Condition: Stable <Deb Carias PA-C - Last Filed: 04/11/24 15:08> Instructions: Antibiotic Form, Laceration (ED) <Deb Carias PA-C - Last Filed: 04/11/24 15:08> Additional Instructions: Wound care as directed. Sutures need to be removed in 7-10 days. Have close follow-up with your primary care physician. If you have any worsening symptoms then please call or return to the emergency department. <Deb Carias PA-C - Last Filed: 04/11/24 15:08> Patient Language: Polish <Deb Carias PA-C - Last Filed: 04/11/24 15:08> Prescriptions: No Action aspirin 81 mg Tablet,Chewable 81 mg PO DAILY@0800 Qty: 90 3RF atorvastatin 40 mg Tablet 80 mg PO HS Qty: 90 3RF carvedilol [Coreg] 12.5 mg Tablet 12.5 mg PO Q12HR Qty: 90 3RF clopidogrel 75 mg Tablet 75 mg PO QAM Qty: 90 3RF <Deb Carias PA-C - Last Filed: 04/11/24 15:08> Follow-up/Referrals: PHYSICIAN,ENGINE OILER [Non-Staff] - <Deb Carias PA-C - Last Filed: 04/11/24 15:08>
[2024-04-10] MEDS: TETANUS,DIPHTHERIA,AC PERTUSSIS ADULT (0.5 ML) BOOSTRIX IM (12:52)
--- OUTSIDE RECORDS SUMMARY | 2024-04-10 13:45 | XMS_ITS | Clinical Summary ---
Author Organization [facility] Address [address] [place] [address]. [place], [place] [address] [place] [id number] Care Team Providers Care Inspector Hairspring Name Role Phone Unavailable Primary Care Provider [...]
--- OUTSIDE RECORDS SUMMARY | 2024-04-10 13:45 | XMS_ITS | Patient Health Summary ---
Author Organization [facility] [employer] Address [address] [place] [address] Care Team Providers Care Fighting Vehicle Systems Maintainer Name Role Phone Unavailable Primary Care Provider Unavailabl e Note from [facility],non-owned Affiliates and Associated Physician Practices is amultiple site organization consisting of ambulatory clinics and hospital sitesin [place], [place], [place] and [place]. This disclosure is being madepursuant to the Care Everywhere program and may not contain all information available regarding this patient. Last updated 17.[facility] Allergies No known active allergies Medications [...] * TROPONIN I (10/01/2018 9:41 PM CDT) [facility] Troponin I <0.012 <=0.049 ng/mL 10/01/2018 10:21 PM CDT [facility] Blood BLOOD SPECIMEN / Unknown Venipuncture / Unknown 10/01/2018 9:41 PM CDT 10/01/2018 9:45 PM CDT Narrative [facility] - 10/01/2018 10:21 PM CDT [...] Bledsoe DO LAB - CHEMISTRY ORD ERABLES [facility] [address] [place], [place] [address] * (ABNORMAL) DIFFERENTIAL MANUAL (10/01/2018 9:41 PM CDT) Pathologist [facility] WBC Auto 15.6(H) 4.0 - 10.0 x10E9/L [...] - 6.5 x10E3/uL 10/01/2018 10:48 PM CDT [facility] Cells Counted 100 # cells 10/01/2018 10:48 PM CDT [facility] Platelet Estimation Adequate platelets Normal, Adequate platelets 10/01/2018 10:48 PM CDT [facility] RBC Morphology Normal 10/01/2018 10:48 PM CDT [facility] WBC Morph Normal 10/01/2018 10:48 PM CDT [facility] Blood BLOOD SPECIMEN / Unknown Venipuncture / Unknown 10/01/2018 9:41 PM CDT 10/01/2018 9:45 PM CDT Gene Bledsoe DO LAB - HEMATOLOGY OR DERABLES [facility] [address] [place] [address], [facility] * (ABNORMAL) CBC W AUTO DIFFERENTIAL (10/01/2018 [...] <=0 /100 WBC 10/01/2018 9:52 PM CDT [facility] nRBC Absolute 0.00 <=0 x10E9/L 10/01/2018 9:52 PM CDT [facility] Blood BLOOD SPECIMEN / Unknown Venipuncture / Unknown 10/01/2018 9:41 PM CDT 10/01/2018 9:45 PM CDT Gene Bledsoe DO LAB - HEMATOLOGY OR DERABLES [facility] [address] [place] [address], [facility] * (ABNORMAL) COMPREHENSIVE METABOLIC PANEL (10/01/2018 9:41 PM CDT) Glucose 114 70 - 125 mg/dL 10/01/2018 10:13 PM CDT [facility] Sodium 141 136 - 145 mmol/L 10/01/2018 10:13 PM T [facility] Potassium 4.2 3.4 - 4.5 mmol/L 10/01/2018 10:13 PM [facility] Chloride 107 98 - 107 mmol/L 10/01/2018 10:13 PM [facility] CO2 24 22 - 29 mmol/L 10/01/2018 10:13 PM [facility] Calcium 10.25(H) 8.4 - 10.2 mg/dL 10/01/2018 10:13 PM [facility] Anion Gap 14 10 - 20 mmol/L 10/01/2018 10:13 PM [facility] BUN 18.3 8.4 - 25.7 mg/dL 10/01/2018 10:13 PM [facility] Creatinine 1.18 0.72 - 1.25 mg/dL 10/01/2018 10:13 PM [facility] eGFR by MDRD >60 >60 mL/min/1. 73m2 10/01/2018 10:13 PM [facility] eGFR by MDRD >60 >60 mL/min/1. 73m2 10/01/2018 10:13 PM [facility] Alkaline Phosphatase 90 40 - 150 U/L 10/01/2018 10:13 PM [facility] ALT 21 5 - 55 U/L 10/01/2018 10:13 PM [facility] AST 21 5 - 34 U/L 10/01/2018 10:13 PM [facility] Protein Total 7.5 6.4 - 8.3 gm/dL 10/01/2018 10:13 PM [facility] Albumin 4.5 3.5 - 5.0 gm/dL 10/01/2018 10:13 PM [facility] Globulin Total 3.0 2.6 - 4.0 gm/dL 10/01/2018 10:13 PM [facility] Albumin/Globulin Ratio 1.5 0.9 - 1.6 10/01/2018 10:13 PM [facility] Bilirubin Total 0.9 0.2 - 1.2 mg/dL 10/01/2018 10:13 PM [facility] Blood BLOOD SPECIMEN / Unknown Venipuncture / Unknown 10/01/2018 9:41 PM CDT 10/01/2018 9:45 PM CDT Gene Jordyn Bledsoe DO LAB - CHEMISTRY ORD ERABLES Performing Organization Address City/[facility] Co de Phone Number [facility] [address] * MAGNESIUM BLOOD (10/01/2018 9:41 PM CDT) Magnesium 2.0 1.6 - 2.6 mg/dL 10/01/2018 10:14 PM CDT [facility] Blood BLOOD SPECIMEN / Unknown Venipuncture / Unknown 10/01/2018 9:41 PM CDT 10/01/2018 9:45 PM CDT Gene Matildarichard Ladi LAB - CHEMISTRY ORD ERABLES Performing Organization Address [facility] Co de Phone Number [facility] [address] * LIPASE BLOOD (10/01/2018 9:41 PM CDT) Lipase 21 8 - 78 U/L 10/01/2018 10:14 PM CDT [facility] Blood BLOOD SPECIMEN / Unknown Venipuncture / Unknown 10/01/2018 9:41 PM CDT 10/01/2018 9:45 PM CDT Gene Cobb Ladi LAB - CHEMISTRY ORD ERABLES Performing Organization Address City/[facility] Co de Phone Number [facility] [address] * CK BLOOD (10/01/2018 9:41 PM CDT) CK 117 30 - 200 U/L 10/01/2018 10:14 PM CDT [facility] Blood BLOOD SPECIMEN / Unknown Venipuncture / Unknown 10/01/2018 9:41 PM CDT 10/01/2018 9:45 PM CDT Genesole Bledsoe DO LAB - CHEMISTRY ORD ERABLES Performing Organization Address City/[facility]/ZIP Co de Phone Number [facility] [address] [place] [address], [facility] * EKG 12-LEAD (10/01/2018 9:34 PM CDT) Ventricular Rate 90 BPM [facility] Atrial Rate 90 BPM [facility] P-R Interval 168 ms [facility] QRS Duration ms 96 ms [facility] Q-T Interval ms 370 ms [facility] QTC Calculation (Bezet) 452 ms [facility] Calculated P [place] 46 degrees [facility] Calculated R [place] 4 degrees [facility] Calculated T [place] 24 degrees [facility] Interpretation EKG Normal sinus rhythm Nonspecific ST and T wave abnormality , Inferolateral leads No previous ECGs available Confirmed by MD FARZANA, [facility] ([id number]) on 10/01/2018 9:49:48 PM [facility] 10/01/2018 9:34 PM CDT 10/01/2018 9:49 PM CDT Gene Bledsoe DO ECG ORDERABLES Performing Organization Address [facility]/ZIP Co de Phone Number [facility]
--- OUTSIDE RECORDS SUMMARY | 2024-04-10 13:45 | XMS_ITS | Clinical Summary ---
Author Organization [facility] [employer] Address [address] [place] [address] Care Team Providers Care Foreign Clerk Name Role Phone Unavailable Primary Care Provider Unavailabl e Source Comments [facility] [employer],non-owned Affiliates and Associated Physician Practices is amultiple site organization consisting of ambulatory clinics and hospital sitesin [place], [place], [place] and [place]. This disclosure is being madepursuant to the Care Everywhere program and may not contain all information available regarding this patient. Last updated 17.[facility] [employer] Allergies No known active allergies Medications * [...]
--- OUTSIDE RECORDS SUMMARY | 2024-04-10 13:45 | XMS_ITS | Referral Summary ---
Author Organization [facility] [employer] Address [address] [place] [address] Care Team Providers Care Isobutylene Operator Chief Name Role Phone Unavailable Primary Care Provider Unavailabl e Source Comments [facility] [employer],non-owned Affiliates and Associated Physician Practices is amultiple site organization consisting of ambulatory clinics and hospital sitesin [place], [place], [place] and [place]. This disclosure is being madepursuant to the Care Everywhere program and may not contain all information available regarding this patient. Last updated 17.[facility] [employer] Allergies No known active allergies Medications * [...]
[2024-04-10] MEDS: LIDO 1%/EPINEPHRINE 1:100,000 20 ML VIAL 10 ML INFILTRATE (14:22)
[2024-04-10 14:29] VITALS: PULSE 85; RESP 16; O2SAT 100
== END 2024-04-10 14:30 | disposition home or self-care (01) ==
PROVIDERS: Emergency Provider Emergency Medicine
DX: S61.512A Laceration without foreign body of left wrist, initial encounter (principal); Z23 Encounter for immunization; I10 Essential (primary) hypertension; I25.10 Atherosclerotic heart disease of native coronary artery without angina pectoris; E78.5 Hyperlipidemia, unspecified; Z79.02 Long term (current) use of antithrombotics/antiplatelets; Z79.82 Long term (current) use of aspirin; Z79.899 Other long term (current) drug therapy; W26.8XXA Contact with other sharp object(s), not elsewhere classified, initial encounter
CPT/HCPCS: 12002; 90471; 90715; 99282; J2004